=== PATIENT | male | born 1955 | race Caucasian/White ===

== ENCOUNTER 2016-10-14 16:29 | Emergency (ER) | payer OTHER ==
[~2016-10-14] VITALS: Ht 180.3 cm; Wt 83.6 kg
[2016-10-14 16:33] VITALS: TEMP 36.7; Ht 180.3 cm; Wt 83.6 kg
[2016-10-14] MEDS ORDERED: ASPI1CHW12 PO (17:00)
[2016-10-14] MEDS ORDERED: BISA10SU5 RE (17:00)
[2016-10-14] MEDS ORDERED: TACR1CAP PO ×2 (17:00)
[2016-10-14] MEDS ORDERED: ACYC1CAP8 PO (17:00)
[2016-10-14] MEDS ORDERED: MYCO250C26 PO (17:00)
[2016-10-14] MEDS ORDERED: CLC100 PO (17:00)
[2016-10-14] MEDS ORDERED: SULF1TAB92 PO (17:00)
[2016-10-14] MEDS ORDERED: OXYC1TAB3 PO (17:00)
[2016-10-14] MEDS ORDERED: NIFE30TA83 PO (17:00)
[2016-10-14] MEDS ORDERED: ACET-1311 PO (17:00)
[2016-10-14 17:30] LABS: ISTAT CREATININE 1.9 mg/dl (0.6-1.3); ISTAT HEMOGLOBIN 9.5 g/dl (14.0-18.0); ISTAT IONIZED CALCIUM 1.33 mmol/l (1.12-1.32)
[2016-10-14 17:31] LABS: COMPLETE YES; EOS % 2.3 %; HEMATOCRIT 27.7 % (42-52); IG% 0.3 %; LYMPH % 14.1 %; LYMPH ABS # 0.56 K/uL (1.2-3.4); MEAN CELL VOLUME 96.2 fL (80-100); MEAN CORPUSCULAR HEMOGLOBIN 31.9 pg (25-34); MEAN CORPUSCULAR HGB CONC 33.2 g/dl (32-36); MEAN PLATELET VOLUME 9.7 fL (7.4-10.4); MONO % 3.8 %; NEUT % 79.5 %; PLATELET COUNT 204 K/uL (130-400); RED BLOOD COUNT 2.88 M/uL (4.7-6.1); WHITE BLOOD COUNT 3.97 K/uL (4.8-10.8)
[2016-10-14 17:39] LABS: BUN/CREATININE RATIO 14.6 (10-20); CALCIUM 9.3 mg/dl (8.5-10.1); POTASSIUM 4.9 mmol/L (3.5-5.1)
[2016-10-14 18:52] VITALS: BP 158/74; PULSE 86; O2SAT 98
--- NOTE | 2016-10-14 21:21 | EMERGENCY ROOM VISIT NOTE ---
History Report prepared by Katherine: Aliyah Tolentino Under the Supervision of: Dr. Edwardo Silva D.O. First contact with patient: 16:37 Chief Complaint: OTHER COMPLAINT Stated Complaint: HIGH POSTASSIUM History of Present Illness The patient is a 61 year old male who presents to the Emergency Room with complaints of abnormal lab results. His Potassium was found to be high after lab work this morning, and he was told to come to the ED for evaluation. The patient has a history of a kidney transplant performed in August 2016 at [facility] and follows with a Emergency Medicine named Dr. Boothe. He states he had a diagnoses of End Stage Renal Disease from diabetes, which led to needing the transplant. He was on dialysis for 5 years before undergoing the transplant. He reports his Creatinine is normally around 2, but today is was 1.6. He states Dr. Boothe did not tell him an actual number of what his Potassium was, he simply told him it was "high". He denies eating a large amount of Potassium rich foods recently. The patient admits to a history of hypertension, for which he takes daily medication. The patient denies any recent headache, change in vision, fevers, chest pain, shortness of breath, nausea, vomiting, diarrhea, pain with urination , and melena. 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 A total of 10 systems reviewed and were otherwise negative. Past Medical & Surgical Medical Problems: (1) Diabetes (2) End stage renal disease (3) Hypertension Social History Smoking Status: Former Smoker Alcohol Use: occasionally Drug Use: none Marital Status: Housing Status: lives with family Occupation Status: retired Current/Historical Medications Scheduled Acyclovir (Zovirax), 200 MG PO BID Aspirin (Aspirin 81 Low Dose), 81 MG PO QAM Atorvastatin (Lipitor), 40 MG PO QAM Citalopram (Citalopram Hydrobromide), 40 MG PO QAM Clopidogrel (Plavix), 75 MG PO QAM Docusate Sodium (Docusate Sodium), 100 MG PO BID Mycophenolate Mofetil (Cellcept), 1,000 MG PO BID Nifedipine Ext Rel (Procardia Xl Ext Rel), 30 MG PO QAM Tacrolimus (Prograf), 8 MG PO QPM Tacrolimus (Prograf), 9 MG PO QAM Trimethoprim/Sulfamethoxazole (Bactrim 400MG/80MG), 1 TAB PO MWF Scheduled PRN Acetaminophen (Tylenol), 650 MG PO Q6 PRN for Pain Bisacodyl (Bisacodyl), 10 MG RE DAILY PRN for Constipation Oxycodone Ir (Roxicodone Ir), 5-10 MG PO Q4H PRN for Severe Pain Allergies Coded Allergies: Morphine (Unverified Allergy, Unknown, NAUSEA, 10/14/16) Zolpidem (Unverified Allergy, Unknown, UNKNOWN, 10/14/16) Physical Exam Vital Signs Date Time Temp Pulse Resp B/P Pulse Ox O2 Delivery O2 Flow Rate FiO2 10/14/16 18:52 86 20 158/74 98 10/14/16 17:12 84 10/14/16 16:33 36.7 90 18 120/52 100 Room Air Physical Exam GENERAL: Patient is sitting up in bed, alert, well appearing, well nourished, no acute distress, non-toxic EYE EXAM: normal conjunctiva, PERRL and EOM's grossly intact OROPHARYNX: no exudate, no erythema, lips, buccal mucosa, and tongue normal and mucous membranes are moist NECK: supple, no nuchal rigidity, no adenopathy, non-tender LUNGS: Clear to auscultation. Normal chest wall mechanics HEART: no murmurs, S1 normal and S2 normal ABDOMEN: abdomen soft, non-tender, normo-active bowel sounds, no masses, no rebound or guarding. BACK: Back is symmetrical on inspection and there is no deformity, no midline tenderness, no CVA tenderness. SKIN: no rashes and no bruising UPPER EXTREMITIES: upper extremities are grossly normal. RUE with fistula in place. LOWER EXTREMITIES: No pitting edema. NEURO EXAM: Normal sensorium, cranial nerves II-XII grossly intact, normal speech, no gross weakness of arms, no gross weakness of legs. Gross sensation intact. Medical Decision & Procedures Laboratory Results 10/14/16 17:25 Red Blood Count 2.88, Mean Corpuscular Volume 96.2, Mean Corpuscular Hemoglobin 31.9, Mean Corpuscular Hemoglobin Concent 33.2, Mean Platelet Volume 9.7, Neutrophils (%) (Auto) 79.5, Lymphocytes (%) (Auto) 14.1, Monocytes (%) (Auto) 3.8, Eosinophils (%) (Auto) 2.3, Basophils (%) (Auto) 0.0, Neutrophils # (Auto) 3.16, Lymphocytes # (Auto) 0.56, Monocytes # (Auto) 0.15, Eosinophils # (Auto) 0.09, Basophils # (Auto) 0.00 10/14/16 17:13 Test 10/14/16 17:13 10/14/16 17:14 10/14/16 17:25 Est Creatinine Clear Calc Drug Dose 40.8 ml/min Estimated GFR () 40.3 Estimated GFR (Non- 34.7 BUN/Creatinine Ratio 14.6 (10-20) Calcium Level 9.3 mg/dl (8.5-10.1) Bedside Hemoglobin 9.5 g/dl (14.0-18.0) Bedside Hematocrit 28 % (42-52) Bedside Sodium 139 mEq/L (135-144) Bedside Potassium 5.0 mEq/L (3.3-5.0) Bedside Chloride 109 mEq/L (101-112) Bedside Total CO2 20 mEq/l (24-31) Anion Gap 16.0 mmol/L (16-25) Bedside Blood Urea Nitrogen 31 mg/dl (7-18) Bedside Creatinine 1.9 mg/dl (0.6-1.3) Bedside Glucose (other) 212 mg/dl (70-99) Bedside Ionized Calcium (Sandeep) 1.33 mmol/l (1.12-1.32) White Blood Count 3.97 K/uL (4.8-10.8) Red Blood Count 2.88 M/uL (4.7-6.1) Hemoglobin 9.2 g/dL (14.0-18.0) Hematocrit 27.7 % (42-52) Mean Corpuscular Volume 96.2 fL (80-100) Mean Corpuscular Hemoglobin 31.9 pg (25-34) Mean Corpuscular Hemoglobin Concent 33.2 g/dl (32-36) Platelet Count 204 K/uL (130-400) Mean Platelet Volume 9.7 fL (7.4-10.4) Neutrophils (%) (Auto) 79.5 % Lymphocytes (%) (Auto) 14.1 % Monocytes (%) (Auto) 3.8 % Eosinophils (%) (Auto) 2.3 % Basophils (%) (Auto) 0.0 % Neutrophils # (Auto) 3.16 K/uL (1.4-6.5) Lymphocytes # (Auto) 0.56 K/uL (1.2-3.4) Monocytes # (Auto) 0.15 K/uL (0.11-0.59) Eosinophils # (Auto) 0.09 K/uL (0-0.5) Basophils # (Auto) 0.00 K/uL (0-0.2) RDW Standard Deviation 48.7 fL (36.4-46.3) RDW Coefficient of Variation 14.0 % (11.5-14.5) Immature Granulocyte % (Auto) 0.3 % Immature Granulocyte # (Auto) 0.01 K/uL (0.00-0.02) Laboratory results per my review. ECG Indication: other (abnormal lab results) Rate (beats per minute): 85 Rhythm: sinus rhythm Findings: no ectopy, other (normal axis) ED Course ED COURSE: Vital signs were reviewed and showed normal vital signs. The patients medical record was reviewed The above diagnostic studies were performed and reviewed. ED treatments and interventions as stated above. 1642: The patient was evaluated in room B10. A complete history and physical examination was performed. 1805: I reevaluated the patient. He is resting comfortably and doing fine. 1812: I discussed the patient's case with Dr. Gonzalez, [facility] Pan[facility] Transplant Team. He recommends having the patient follow up as an outpatient in the next week. 1845: Upon reevaluation, the patient is feeling well and resting comfortably. I discussed my findings with the patient and he and his understand and agree with the treatment plan. Based on the patients age, coexisting illnesses, exam and lab findings the decision to treat as an outpatient was made. The patient remained stable while under my care. The patient appeared well at the time of discharge. Medical Decision Differential diagnoses includes actually abnormalities. Patient is a 61-year-old male status post renal transplant within the past year taking his immunomodulators who follows with [facility] Dr. Lombardi from nephrology who referred him into be seen for her hyperkalemia. Upon presentation an i-STAT was obtained along with EKG. EKG was unremarkable. Patient has absolutely no complaints. His potassium was 5 on i-STAT and was 4.9. Creatinine was 2 which is along his baseline of 1.8-2. I discussed this with the on-call receiving coordinator from [facility] and he notes that a creatinine of 2 as patient notes is about his baseline. I asked him to obtain and review the labs and why he got sent in but he notes that the patient says it is for his hyperkalemia and is normal that he recently have him follow-up as an outpatient. Discussed and updated the patient at bedside. He was discharged without complaints of follow-up with nephrology on Monday. He had absolutely no abdominal tenderness and consequently I did not draw any abdominal labs. Discussed with Pt concerning signs and symptoms to watch out for. Pt was instructed to follow up with their PCP and discussed with the patient their option to return to the ED at anytime for persistent or worsening symptoms. The appropriate anticipatory guidance and out-patient management, including indications for return to the emergency department, were explained at length to the patient and understood. Consults Time Called: 1809 Consulting Physician: Dr. Gonzalez, [facility] Returned Call: 1811 I discussed the patient's case with Dr. Gonzalez, [facility]. He recommends having the patient follow up as an outpatient in the next week. Impression Primary Impression: Renal transplant recipient Additional Impressions: Electrolyte abnormality Anemia Scribe Attestation The scribe's documentation has been prepared under my direction and personally reviewed by me in its entirety. I confirm that the note above accurately reflects all work, treatment, procedures, and medical decision making performed by me. Departure Information Dispostion Home / Self-Care Referrals Charles Chaudhari M.D. (PCP) Patient Instructions My [facility] Additional Instructions You were sent in for an evaluation of your potassium which per report was elevated. I contacted the director of early childhood education receiving coordinator following obtaining blood work which showed her potassium to be 5.0 and 4.9 on repeat. Creatinine appears to be at baseline 1.8-2. Since her completely a symptomatically and have a normal potassium you're discharged. He should follow up with your receiving coordinator within the week. Please follow up with your primary care doctor with in the next 24 hours. Any worsening of your symptoms, please return to the ED immediately. This includes passing out, chest pain, shortness of breath, diffuse weakness or any other concerning signs or symptoms from your standpoint. Problem Qualifiers Additional Impressions: Anemia Anemia type: unspecified type Qualified Codes: D64.9 - Anemia, unspecified
[2016-11-17] MEDS ORDERED: MAGN400T6 PO (19:55)
[2016-11-17] MEDS ORDERED: FLUD0.1T10 PO (19:55)
[2016-11-17] MEDS ORDERED: CEPH500C PO (21:45)
[2016-11-19] MEDS ORDERED: AZIT500I9 IV (10:53)
[2016-11-19] MEDS ORDERED: CEFE2INJ2 IV (10:53)
[2017-01-23] MEDS ORDERED: MYCO250C26 PO (16:12)
[2017-01-23] MEDS ORDERED: ASPI81TA28 PO (16:12)
[2017-01-23] MEDS ORDERED: SUMA100T16 PO (16:12)
[2017-01-23] MEDS ORDERED: TACR1CAP PO ×2 (16:12)
[2017-01-23] MEDS ORDERED: ACET-1311 PO (16:12)
[2017-01-23] MEDS ORDERED: CARV3.122 PO (16:12)
[2017-01-23] MEDS ORDERED: MAGN400T6 PO (16:12)
[2017-01-23] MEDS ORDERED: SPT/ PO (16:12)
[2017-01-23] MEDS ORDERED: ATOR-24 PO (17:00)
[2017-01-23] MEDS ORDERED: CLX40 PO (17:00)
[2017-01-23] MEDS ORDERED: CLOP1TAB15 PO (17:00)
[2017-01-30] MEDS ORDERED: INSPMPNVLG (09:24)
[2017-01-30] MEDS ORDERED: CRG25 PEG (15:16)
[2017-01-30] MEDS ORDERED: PANT40TA PO (15:45)
[2017-01-30] MEDS ORDERED: AMLO2.5T PO (15:45)
[2017-01-30] MEDS ORDERED: CRG25 PO (17:25)
== END 2016-10-14 18:53 | disposition home or self-care (01) ==
LOC: C.EDB 16:32
DX: E87.5 Hyperkalemia (principal); Z94.0 Kidney transplant status; D64.9 Anemia, unspecified; I12.0 Hypertensive chronic kidney disease with stage 5 chronic kidney disease or end stage renal disease; E11.22 Type 2 diabetes mellitus with diabetic chronic kidney disease; N18.6 End stage renal disease; Z87.891 Personal history of nicotine dependence; Z79.02 Long term (current) use of antithrombotics/antiplatelets; Z79.82 Long term (current) use of aspirin; Z79.899 Other long term (current) drug therapy

== ENCOUNTER 2016-11-17 17:54 | Emergency (ER) | payer OTHER ==
[~2016-11-17] VITALS: Ht 180.3 cm; Wt 76.7 kg
[~2016-11-17 17:54] MED LIST: ACET-1311 PO; ACYC1CAP8 PO; ASPI1CHW12 PO; BISA10SU5 RE; CLC100 PO; MYCO250C26 PO; NIFE30TA83 PO; OXYC1TAB3 PO; SULF1TAB92 PO; TACR1CAP PO
[2016-11-17 18:04] VITALS: Ht 180.3 cm; Wt 76.7 kg
[2016-11-17 18:35] VITALS: O2SAT 97
--- NOTE | 2016-11-17 18:37 | EMERGENCY ROOM VISIT NOTE ---
History Report prepared by Katherine: Any Rodriguez Under the Supervision of: Dr. Kash Mahoney M.D. 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 The patient states that he had a cough due to the congestion over the last few days. He states that he has had some chest pain from the intensity of the cough. 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 The patient states that he contacted his doctor about his symptoms today and they advised him to be evaluated at the ED. The patient states that he has been able to urinate normally since the transplant and denies any recent fevers or chills. The patient states that he is on many medications due to the recent transplant and states that his blood sugar has been fluctuating a lot recently due to his medications. The patient states that he has also had dizziness in the morning that he states has been occurring for quite some time. Source of History: patient Onset: few days KETTLE TENDER Position: chest Timing: other (persistent) Associated Symptoms: + chest pain, No chills, No fevers, No urinary symptoms Note: Associated symptoms: dizziness, fluctuating blood sugar. Review of Systems All systems have been listed, reviewed, and are negative other than those previously mentioned. Please see Additional Medical History Sheet. Past Medical & Surgical Medical Problems: (1) Diabetes (2) End stage renal disease (3) Hypertension Surgical Problems: (1) Kidney transplant recipient Family History Diabetes mellitus Heart disease Hypertension Lung disease Social History Smoking Status: Never Smoker Smokeless Tobacco Use: No Alcohol Use: none Housing Status: lives alone Occupation Status: retired Current/Historical Medications Scheduled Acyclovir (Zovirax), 200 MG PO BID Aspirin (Aspirin 81 Low Dose), 81 MG PO QAM Atorvastatin (Lipitor), 40 MG PO QAM Cephalexin Monohydrate (Keflex), 500 MG PO QID Citalopram (Citalopram Hydrobromide), 40 MG PO QAM Clopidogrel (Plavix), 75 MG PO QAM Docusate Sodium (Docusate Sodium), 100 MG PO BID Fludrocortisone Acetate (Florinef), 0.1 MG PO DAILY Magnesium Oxide (Mag-Ox), 400 MG PO BID Mycophenolate Mofetil (Cellcept), 1,000 MG PO BID Nifedipine Ext Rel (Procardia Xl Ext Rel), 30 MG PO QAM Tacrolimus (Prograf), 8 MG PO QPM Tacrolimus (Prograf), 9 MG PO QAM Trimethoprim/Sulfamethoxazole (Bactrim 400MG/80MG), 1 TAB PO MWF Scheduled PRN Acetaminophen (Tylenol), 650 MG PO Q6 PRN for Pain Bisacodyl (Bisacodyl), 10 MG RE DAILY PRN for Constipation Oxycodone Ir (Roxicodone Ir), 5-10 MG PO Q4H PRN for Severe Pain Allergies Coded Allergies: Morphine (Unverified Allergy, Unknown, NAUSEA, 10/14/16) Zolpidem (Unverified Allergy, Unknown, UNKNOWN, 10/14/16) Physical Exam Vital Signs Date Time Temp Pulse Resp B/P Pulse Ox O2 Delivery O2 Flow Rate FiO2 11/17/16 21:57 36.4 108 18 114/69 98 11/17/16 20:06 95 141/75 100 Room Air 11/17/16 18:50 96 Room Air 11/17/16 18:41 92 11/17/16 18:35 97 Room Air 11/17/16 18:04 37.0 107 20 101/53 100 Room Air Physical Exam GENERAL: Patient awake, alert, oriented x 3. Patient follows commands. Patient does not appear toxic. Patient is adequately hydrated and well- nourished. SKIN: No erythema, pallor, cyanosis or rash HEENT: Normal head, pupils equal, reactive to light and accommodation. Ears normal. Oral cavity and posterior pharynx appear normal. Neck: Without adenopathy, no neck vein distention. LUNGS:An expiratory wheezing in all amos. HEART: Grade 2/6 systolic murmur. No gallops. No rubs ABDOMEN: No masses, no rebound, no hepatomegaly or splenomegaly. Well healed low abdominal scar. EXTREMITIES: No signs of trauma. No pedal or pretibial edema. No calf or thigh tenderness. NEUROLOGIC: Cranial nerves II-XII within normal limits. No gross motor sensory function deficits. Medical Decision & Procedures ER Provider Diagnostic Interpretation: X ray results are stated below per my interpretation and the radiologist's interpretation. CHEST 2 VIEWS ROUTINE CLINICAL HISTORY: CHEST PAIN dyspnea COMPARISON STUDY: No previous studies for comparison. FINDINGS: The bones soft tissues and hemidiaphragms are normal. The cardiomediastinal silhouette is normal. The lungs are clear. The pulmonary vasculature is normal. IMPRESSION: Negative chest. Electronically signed by: Noah Mata M.D. 11/17/2016 7:17 PM Dictated Date/Time: 11/17/2016 7:17 PM Laboratory Results 11/17/16 18:43 Red Blood Count 3.32, Mean Corpuscular Volume 93.1, Mean Corpuscular Hemoglobin 31.6, Mean Corpuscular Hemoglobin Concent 34.0, Mean Platelet Volume 10.4 11/17/16 18:43 Test 11/17/16 18:43 11/17/16 21:13 White Blood Count 0.98 K/uL (4.8-10.8) Red Blood Count 3.32 M/uL (4.7-6.1) Hemoglobin 10.5 g/dL (14.0-18.0) Hematocrit 30.9 % (42-52) Mean Corpuscular Volume 93.1 fL (80-100) Mean Corpuscular Hemoglobin 31.6 pg (25-34) Mean Corpuscular Hemoglobin Concent 34.0 g/dl (32-36) Platelet Count 153 K/uL (130-400) Mean Platelet Volume 10.4 fL (7.4-10.4) RDW Standard Deviation 46.7 fL (36.4-46.3) RDW Coefficient of Variation 13.7 % (11.5-14.5) Neutrophils % (Manual) 74.7 % Lymphocytes % (Manual) 8.3 % Monocytes % (Manual) 12.2 % Eosinophils % (Manual) 0.4 % Metamyelocytes % 3.5 % Myelocytes % 0.9 % Neutrophils # (Manual) 0.73 K/uL (1.4-6.5) Total Absolute Neutrophils 0.73 K/uL (1.4-6.5) Lymphocytes # (Manual) 0.08 K/uL (1.2-3.4) Total Absolute Lymphocytes 0.08 K/uL (1.2-3.4) Monocytes # (Manual) 0.12 K/uL (0.11-0.59) Eosinophils # (Manual) 0.00 K/uL (0-0.5) Metamyelocytes # 0.03 K/uL (0-0) Myelocytes # 0.01 K/uL (0-0) Ovalocytes 1+ Anion Gap 13.0 mmol/L (3-11) Est Creatinine Clear Calc Drug Dose 34.0 ml/min Estimated GFR () 32.3 Estimated GFR (Non- 27.9 BUN/Creatinine Ratio 16.9 (10-20) Calcium Level 9.6 mg/dl (8.5-10.1) Total Bilirubin 0.5 mg/dl (0.2-1) Aspartate Amino Transf (AST/SGOT) 14 U/L (15-37) Alanine Aminotransferase (ALT/SGPT) 18 U/L (12-78) Alkaline Phosphatase 183 U/L (45-117) Troponin I < 0.015 ng/ml (0-0.045) Total Protein 7.0 gm/dl (6.4-8.2) Albumin 3.8 gm/dl (3.4-5.0) Globulin 3.2 gm/dl (2.5-4.0) Albumin/Globulin Ratio 1.2 (0.9-2) Beta-Hydroxybutyric Acid 12.91 mg/dL (0.2-2.81) Bedside Glucose 371 mg/dl (70-99) Laboratory results as stated above per my review. Medications Administered Medications (Trade) Dose Ordered Sig/Jose Route Start Time Stop Time Status Last Admin Dose Admin Albuterol (Ventolin Hfa Inhaler) 2 puffs NOW STAT INH 11/17/16 19:10 11/17/16 19:11 DC 11/17/16 19:56 2 PUFFS Insulin Human Regular (novoLIN-R U-100 PER UNIT) 8 units NOW STAT IV 11/17/16 19:51 11/17/16 19:53 DC 11/17/16 20:01 8 UNITS Cephalexin Monohydrate (Keflex Cap) 500 mg NOW ONCE PO 11/17/16 20:00 11/17/16 20:01 DC 11/17/16 20:04 500 MG ECG Indication: other (chest congestion) Rate (beats per minute): 94 Rhythm: normal sinus Findings: no acute ischemic change, no ectopy ED Course 1817: Past medical records reviewed. The patient was evaluated in room B2. A complete history and physical examination was performed. 1909: Ordered Albuterol 2 puffs INH. 1944: I reevaluated the patient and he was hemodynamically stable. 1950: Ordered Insulin Human Regular 8 units IV. 1999: Ordered Keflex Cap 500 mg PO. 2000: I updated the patient on his test results. 2149: Upon reevaluation, the patient appeared to have improvement of his symptoms. I discussed today's findings with him. He verbalized agreement of the treatment plan. The patient was discharged home. Medical Decision Nurses notes reviewed. Medical history sheet reviewed. Differential diagnosis includes but is not limited to: pneumonia, bronchitis, upper respiratory infection, and immunosuppression. The patient is here with congestion and cough. The patient is on immunosuppressants for his kidney transplant. Multiple labs, EKG and imaging were obtained. Please see above. The patient has no infiltrate on his chest x- ray. His white count is very low. He has no shift. He has no fever has no other signs of infection. The patient was him. We started on Keflex. His blood sugar was elevated and was treated with IV insulin. Blood sugar was rechecked and it did come down. He has a pump and he will regulate his blood sugar at home. The patient was also started on Ventolin inhaler. He is to follow-up this family physician within the next 5 days. Impression Primary Impression: Acute bronchitis Additional Impressions: Leukopenia Immunosuppression Diabetes mellitus out of control Scribe Attestation The scribe's documentation has been prepared under my direction and personally reviewed by me in its entirety. I confirm that the note above accurately reflects all work, treatment, procedures, and medical decision making performed by me. Departure Information Dispostion Home / Self-Care Prescriptions Cephalexin Monohydrate (Keflex) 500 Mg Cap 500 MG PO QID, #40 CAP Prov: Kash Mahoney M.D. 11/17/16 Referrals Charles Chaudhari M.D. (PCP) Forms HOME CARE DOCUMENTATION FORM, IMPORTANT VISIT INFORMATION Patient Instructions My [facility] Additional Instructions 1 Keflex 4 times a day for 10 days. 2 puffs of your inhaler every 4 hours as needed for cough or wheezing. Follow-up with your family physician within the next 5 days. Return here sooner if he develop more shortness of breath or any fever. Recheck your blood sugar frequently. Problem Qualifiers
[2016-11-17] MEDS ORDERED: ALBUTEROL HFA 8 GM INHALER INH STA (19:10)
--- NOTE | 2016-11-17 19:18 | DIAGNOSTIC IMAGING REPORT ---
CHEST 2 VIEWS ROUTINE CLINICAL HISTORY: CHEST PAIN dyspnea COMPARISON STUDY: No previous studies for comparison. FINDINGS: The bones soft tissues and hemidiaphragms are normal. The cardiomediastinal silhouette is normal. The lungs are clear. The pulmonary vasculature is normal. IMPRESSION: Negative chest. Electronically signed by: Noah Mata M.D. 11/17/2016 7:17 PM Dictated Date/Time: 11/17/2016 7:17 PM
[2016-11-17 19:25] LABS: ALB/GLOB RATIO 1.2 (0.9-2); ALKALINE PHOSPHATASE 183 U/L (45-117); ALT/SGPT 18 U/L (12-78); AST/SGOT 14 U/L (15-37); BLOOD UREA NITROGEN 41 mg/dl (7-18); BUN/CREATININE RATIO 16.9 (10-20); CALCIUM 9.6 mg/dl (8.5-10.1); CARBON DIOXIDE 19 mmol/L (21-32); CHLORIDE 102 mmol/L (98-107); GLUCOSE 523 mg/dl (70-99); POTASSIUM 5.1 mmol/L (3.5-5.1); SODIUM 134 mmol/L (136-145)
[2016-11-17 19:39] LABS: BETA-HYDROXYBUTYRATE 12.91 mg/dL (0.2-2.81)
[2016-11-17 19:45] LABS: HEMATOCRIT 30.9 % (42-52); MEAN CELL VOLUME 93.1 fL (80-100); MEAN CORPUSCULAR HEMOGLOBIN 31.6 pg (25-34); MEAN PLATELET VOLUME 10.4 fL (7.4-10.4); PLATELET COUNT 153 K/uL (130-400); RED BLOOD COUNT 3.32 M/uL (4.7-6.1); WHITE BLOOD COUNT 0.98 K/uL (4.8-10.8)
[2016-11-17 19:46] LABS: COMPLETE YES; EOSINOPHIL % 0.4 %; LYMPH ABS # 0.08 K/uL (1.2-3.4); LYMPHOCYTE % 8.3 %; META ABS # 0.03 K/uL (0-0); METAMYELOCYTE % 3.5 %; MYELOCYTE % 0.9 %; NEUTROPHILS % 74.7 %; OVALOCYTES 1+
[2016-11-17] MEDS ORDERED: NovoLIN-R INSULIN PER UNIT CHARGE IV STA (19:51)
[2016-11-17] MEDS ORDERED: FLUD0.1T10 PO ×2 (19:55)
[2016-11-17] MEDS ORDERED: MAGN400T6 PO ×2 (19:55)
[2016-11-17] MEDS ORDERED: CEPHALEXIN MONOHYDRATE 250 MG CAP PO ONE (20:00)
[2016-11-17] MEDS ORDERED: CEPH500C PO ×2 (21:45)
[2016-11-17 21:57] VITALS: BP 114/69; PULSE 108; TEMP 36.4; O2SAT 98
[2016-11-19] MEDS ORDERED: AZIT500I9 IV ×2 (10:53)
[2016-11-19] MEDS ORDERED: CEFE2INJ2 IV ×2 (10:53)
[2017-01-23] MEDS ORDERED: CARV3.122 PO (16:12)
[2017-01-23] MEDS ORDERED: MAGN400T6 PO (16:12)
[2017-01-23] MEDS ORDERED: SPT/ PO (16:12)
[2017-01-23] MEDS ORDERED: ASPI81TA28 PO (16:12)
[2017-01-23] MEDS ORDERED: SUMA100T16 PO (16:12)
[2017-01-23] MEDS ORDERED: TACR1CAP PO ×2 (16:12)
[2017-01-23] MEDS ORDERED: MYCO250C26 PO (16:12)
[2017-01-23] MEDS ORDERED: ACET-1311 PO (16:12)
[2017-01-23] MEDS ORDERED: CLOP1TAB15 PO ×2 (17:00)
[2017-01-23] MEDS ORDERED: ATOR-24 PO ×2 (17:00)
[2017-01-23] MEDS ORDERED: CLX40 PO ×2 (17:00)
[2017-01-30] MEDS ORDERED: INSPMPNVLG (09:24)
[2017-01-30] MEDS ORDERED: CRG25 PEG (15:16)
[2017-01-30] MEDS ORDERED: AMLO2.5T PO (15:45)
[2017-01-30] MEDS ORDERED: PANT40TA PO (15:45)
[2017-01-30] MEDS ORDERED: CRG25 PO (17:25)
== END 2016-11-17 22:00 | disposition home or self-care (01) ==
LOC: C.EDB 17:55
DX: J20.9 Acute bronchitis, unspecified (principal); D72.819 Decreased white blood cell count, unspecified; D89.9 Disorder involving the immune mechanism, unspecified; E11.9 Type 2 diabetes mellitus without complications; I12.0 Hypertensive chronic kidney disease with stage 5 chronic kidney disease or end stage renal disease; N18.6 End stage renal disease; Z94.0 Kidney transplant status

== ENCOUNTER 2016-11-18 20:38 | Inpatient (IN) | payer OTHER ==
[~2016-11-18] VITALS: Ht 180.3 cm; Wt 74.7 kg
[~2016-11-18 20:38] MED LIST changes: +CEPH500C PO; +FLUD0.1T10 PO; +MAGN400T6 PO
[2016-11-18] MEDS ORDERED: SODIUM CHLORIDE 0.9% 1000ML 1,000 ML IV STA (21:18)
[2016-11-18] MEDS ORDERED: ONDANSETRON INJ 2 MG/ML 2 ML VIAL IV STA (21:18)
--- NOTE | 2016-11-18 21:45 | DIAGNOSTIC IMAGING REPORT ---
CHEST ONE VIEW PORTABLE CLINICAL HISTORY: Sepsis dyspnea COMPARISON STUDY: 11/17/2016 FINDINGS: Developing infiltrative process medial left lung base. Lungs otherwise appear clear. Diaphragms are smooth. IMPRESSION: Minimal developing parenchymal infiltrate medial left base Electronically signed by: Noah Mata M.D. 11/18/2016 9:44 PM Dictated Date/Time: 11/18/2016 9:43 PM
[2016-11-18 21:47] LABS: INR 1.1 (0.9-1.1); PROTHROMBIN TIME (PATIENT) 11.8 SECONDS (9.0-12.0)
[2016-11-18 21:56] LABS: ALB/GLOB RATIO 1.2 (0.9-2); BUN/CREATININE RATIO 15.9 (10-20); CREATININE 2.6 mg/dl (0.60-1.40); POTASSIUM 4.3 mmol/L (3.5-5.1)
[2016-11-18 22:10] LABS: BETA-HYDROXYBUTYRATE 8.65 mg/dL (0.2-2.81)
[2016-11-18] MEDS ORDERED: CEFEPIME IV 2,000 MG in DEXTROSE 5% 100ML 100 ML IV STA (22:42)
[2016-11-18] MEDS ORDERED: NovoLIN-R INSULIN PER UNIT CHARGE IV STA (23:12)
[2016-11-18 23:24] LABS: LARGE PLATELETS 1+
[2016-11-18 23:25] LABS: LYMPH ABS # 0.15 K/uL (1.2-3.4); LYMPHOCYTE % 12.6 %; META ABS # 0.01 K/uL (0-0); NEUTROPHILS % 71.8 %
[2016-11-18 23:26] LABS: HEMATOCRIT 31.7 % (42-52); MEAN CELL VOLUME 93.5 fL (80-100); MEAN CORPUSCULAR HEMOGLOBIN 31.6 pg (25-34); MEAN CORPUSCULAR HGB CONC 33.8 g/dl (32-36); MEAN PLATELET VOLUME 11.3 fL (7.4-10.4); PLATELET COUNT 177 K/uL (130-400); RED BLOOD COUNT 3.39 M/uL (4.7-6.1); WHITE BLOOD COUNT 1.23 K/uL (4.8-10.8)
[2016-11-18 23:28] LABS: DOHLE BODIES 1+
[2016-11-18 23:29] LABS: COMPLETE YES
[2016-11-19 00:02] LABS: URINE APPEARANCE CLEAR (CLEAR); URINE BILIRUBIN NEG (NEG); URINE COLOR YELLOW; URINE NITRITE NEG (NEG); URINE PH 5.5 (4.5-7.5); URINE SPECIFIC GRAVITY 1.019 (1.000-1.030); UROBILINOGEN NEG (NEG); ZZUR CULT IF INDIC CLEAN CATCH NO
[2016-11-19 00:04] LABS: MANUAL MICROSCOPIC REQUIRED? NO; REVIEW REQ? NO
[2016-11-19] MEDS ORDERED: INSULIN IV INFUSION PROTOCOL STA (00:56)
[2016-11-19] MEDS ORDERED: SEVERE STRESS LEVEL ONE (01:00)
[2016-11-19] MEDS ORDERED: INSULIN PROTOCOL GOAL RANGE ONE (01:00)
[2016-11-19] MEDS ORDERED: SODIUM CHLORIDE 0.9% 1000ML 1,000 ML IV STA (01:09)
[2016-11-19] MEDS ORDERED: AZITHROMYCIN IV 500 MG in DEXTROSE 5% 250ML 250 ML IV STA (01:25)
[2016-11-19] MEDS ORDERED: PROMETHAZINE HCL INJ 12.5 MG in SODIUM CHLORIDE 0.9% 50ML 50 ML IV STA (01:31)
--- NOTE | 2016-11-19 02:30 | EMERGENCY ROOM VISIT NOTE ---
History Report prepared by Katherine: Ermelinda Delgado Under the Supervision of: Dr. Moiz Lei M.D. First contact with patient: 21:10 Chief Complaint: VOMITING Stated Complaint: POSSIBLE DEHYDRATION, VOMITING; REVIST FROM 11/17 Nursing Triage Summary: pt reports pt seen here last night for vomitting , this cont. also with diarrhea today History of Present Illness The patient is a 61 year old male who presents to the Emergency Room with complaints of a constant illness beginning this week. The patient reports that he has been sick for a couple of weeks but it has significantly worsened over the last week. He states that he was seen here last night for vomiting and today his symptoms are worse. He complains of an "extreme" non-productive cough , vomiting for 2 days, shortness of breath that is worsened with walking, chest soreness from coughing, weakness, dizziness, and diarrhea. He notes that he has not been able to hold down food or liquid in the last 2 days. The patient denies any urinary symptoms and fever. Source of History: patient Onset: 1 week ago Position: other (global) Timing: constant Modifying Factors (Worsening): other (walking worsens SOB) Associated Symptoms: + SOB, + cough, + diarrhea, + vomiting, + weakness, No fevers, No urinary symptoms Note: He complains of an chest soreness from coughing, dizziness. He notes that he has not been able to hold down food or liquid in the last 2 days. Review of Systems See HPI for pertinent positives & negatives. A total of 10 systems reviewed and were otherwise negative. Past Medical & Surgical Medical Problems: (1) Diabetes (2) DKA (diabetic ketoacidoses) (3) End stage renal disease (4) Hypertension Surgical Problems: (1) Kidney transplant recipient Family History Diabetes mellitus Heart disease Hypertension Lung disease Social History Smoking Status: Former Smoker Alcohol Use: none Housing Status: lives alone Occupation Status: retired Current/Historical Medications Scheduled Acyclovir (Zovirax), 200 MG PO BID Aspirin (Aspirin 81 Low Dose), 81 MG PO QAM Atorvastatin (Lipitor), 40 MG PO QAM Cephalexin Monohydrate (Keflex), 500 MG PO QID Citalopram (Citalopram Hydrobromide), 40 MG PO QAM Clopidogrel (Plavix), 75 MG PO QAM Docusate Sodium (Docusate Sodium), 100 MG PO BID Fludrocortisone Acetate (Florinef), 0.1 MG PO DAILY Magnesium Oxide (Mag-Ox), 400 MG PO BID Mycophenolate Mofetil (Cellcept), 1,000 MG PO BID Nifedipine Ext Rel (Procardia Xl Ext Rel), 30 MG PO QAM Tacrolimus (Prograf), 8 MG PO QPM Tacrolimus (Prograf), 9 MG PO QAM Scheduled PRN Acetaminophen (Tylenol), 650 MG PO Q6 PRN for Pain Bisacodyl (Bisacodyl), 10 MG RE DAILY PRN for Constipation Oxycodone Ir (Roxicodone Ir), 5-10 MG PO Q4H PRN for Severe Pain Allergies Coded Allergies: Morphine (Unverified Allergy, Unknown, NAUSEA, 11/18/16) Zolpidem (Unverified Allergy, Unknown, UNKNOWN, 11/18/16) Physical Exam Vital Signs Date Time Temp Pulse Resp B/P Pulse Ox O2 Delivery O2 Flow Rate FiO2 11/19/16 01:23 120 20 136/77 99 Room Air 11/19/16 00:51 121 11/18/16 23:41 117 18 169/93 99 Room Air 11/18/16 22:12 106 18 158/113 100 Room Air 11/18/16 21:11 102 11/18/16 20:43 36.7 110 20 110/68 100 Room Air Physical Exam Constitutional: Vital signs reviewed. Eyes: Pupils are equal round reactive to light. Conjunctiva are noninjected. ENT: Pharynx is clear without erythema or exudate. Mucous membranes are dry. Neck supple without meningeal signs. Respiratory: Clear to auscultation bilaterally. Breath sounds are equal bilaterally. Cardiovascular: Tachycardic rate of 103 and rhythm. No rubs or gallops. GI: Soft, nondistended and nontender. Bowel sounds are present. No tenderness over his graft. Musculoskeletal: No peripheral edema. No lower extremity tenderness. Integumentary: No cyanosis. Neurological: The patient is awake and alert. No focal deficits. Psychiatric: Normal affect. Medical Decision & Procedures ER Provider Diagnostic Interpretation: X-ray results as stated below per interpretation by me and the radiologist. Other radiology results as stated below per my review and the radiologist's interpretation: CHEST ONE VIEW PORTABLE FINDINGS: Developing infiltrative process medial left lung base. Lungs otherwise appear clear. Diaphragms are smooth. IMPRESSION: Minimal developing parenchymal infiltrate medial left base Electronically signed by: Noah Mata M.D. 11/18/2016 9:44 PM Dictated Date/Time: 11/18/2016 9:43 PM US OTHER - Renal Transplant: Mild hydronephrosis. Resistive indices are within normal limits measuring 0.65-0.8. Tiny 4mm lower pole cyst. Iliac artery velocity 231cm/s. Main renal artery anastomosis velocity 514cm/s ( decreased). No priors available to establish trend. Suggest followup to exclude stenosis. Main renal vein and iliac vein appear patent. Bladder debris. Bladder volume pre-void 438mL, postvoid 301mL. Radiologist: Hair Balderrama M.D. Laboratory Results 11/18/16 21:00 Red Blood Count 3.39, Mean Corpuscular Volume 93.5, Mean Corpuscular Hemoglobin 31.6, Mean Corpuscular Hemoglobin Concent 33.8, Mean Platelet Volume 11.3 Test 11/18/16 21:00 11/18/16 21:10 11/18/16 21:29 11/18/16 21:39 White Blood Count 1.23 K/uL (4.8-10.8) Red Blood Count 3.39 M/uL (4.7-6.1) Hemoglobin 10.7 g/dL (14.0-18.0) Hematocrit 31.7 % (42-52) Mean Corpuscular Volume 93.5 fL (80-100) Mean Corpuscular Hemoglobin 31.6 pg (25-34) Mean Corpuscular Hemoglobin Concent 33.8 g/dl (32-36) Platelet Count 177 K/uL (130-400) Mean Platelet Volume 11.3 fL (7.4-10.4) RDW Standard Deviation 46.9 fL (36.4-46.3) RDW Coefficient of Variation 13.7 % (11.5-14.5) Neutrophils % (Manual) 71.8 % Band Neutrophils % (Manual) 0.0 % Lymphocytes % (Manual) 12.6 % Variant Lymphocytes % (manual) 0.0 % Monocytes % (Manual) 13.6 % Metamyelocytes % 1.0 % Myelocytes % 1.0 % Neutrophils # (Manual) 0.85 K/uL (1.4-6.5) Total Absolute Neutrophils 0.85 K/uL (1.4-6.5) Lymphocytes # (Manual) 0.15 K/uL (1.2-3.4) Total Absolute Lymphocytes 0.15 K/uL (1.2-3.4) Monocytes # (Manual) 0.16 K/uL (0.11-0.59) Metamyelocytes # 0.01 K/uL (0-0) Myelocytes # 0.01 K/uL (0-0) Percent Large Granular Lymphocytes 0.0 % Dohle Bodies 1+ Large Platelets 1+ Prothrombin Time 11.8 SECONDS (9.0-12.0) Prothromb Time International Ratio 1.1 (0.9-1.1) Activated Partial Thromboplast Time 24.9 SECONDS (21.0-31.0) Partial Thromboplastin Ratio 1.0 Est Creatinine Clear Calc Drug Dose 31.1 ml/min Total Bilirubin 0.6 mg/dl (0.2-1) Aspartate Amino Transf (AST/SGOT) 12 U/L (15-37) Alanine Aminotransferase (ALT/SGPT) 16 U/L (12-78) Alkaline Phosphatase 175 U/L (45-117) Total Protein 7.2 gm/dl (6.4-8.2) Albumin 3.9 gm/dl (3.4-5.0) Globulin 3.3 gm/dl (2.5-4.0) Albumin/Globulin Ratio 1.2 (0.9-2) Beta-Hydroxybutyric Acid 8.65 mg/dL (0.2-2.81) Influenza Type A Antigen Neg for Influ A (NEG) Influenza Type B Antigen Neg for Influ B (NEG) Bedside Troponin I 0.010 ng/ml (0-0.045) Test 11/18/16 21:58 11/18/16 23:45 11/19/16 00:54 11/19/16 01:13 Bedside Lactic Acid Venous 2.60 mmol/L (0.90-1.70) Urine Color YELLOW Urine Appearance CLEAR (CLEAR) Urine pH 5.5 (4.5-7.5) Urine Specific [place] 1.019 (1.000-1.030) Urine Protein NEG (NEG) Urine Glucose (UA) 3+ (NEG) Urine Ketones NEG (NEG) Urine Occult Blood NEG (NEG) Urine Nitrite NEG (NEG) Urine Bilirubin NEG (NEG) Urine Urobilinogen NEG (NEG) Urine Leukocyte Esterase NEG (NEG) Urine WBC (Auto) 0 /hpf (0-5) Urine RBC (Auto) 0-4 /hpf (0-4) Urine Hyaline Casts (Auto) 1-5 /lpf (0-5) Urine Epithelial Cells (Auto) 5-10 /lpf (0-5) Urine Bacteria (Auto) NEG (NEG) Bedside Glucose 217 mg/dl (70-99) Laboratory results as reviewed by me. Medications Administered Medications (Trade) Dose Ordered Sig/Jose Route Start Time Stop Time Status Last Admin Dose Admin Sodium Chloride (Nss 1000ml) 1,000 ml @ 999 mls/hr Q1H1M STAT IV 11/18/16 21:18 11/18/16 22:18 DC 11/18/16 21:18 999 MLS/HR Ondansetron HCl 4 mg 4 mg NOW STAT IV 11/18/16 21:18 11/18/16 21:21 DC 11/18/16 21:34 4 MG Cefepime HCl/ Dextrose (Maxipime IV/D5 100ml) 112.5 ml @ 200 mls/hr NOW STAT IV 11/18/16 22:42 11/18/16 23:15 DC 11/18/16 23:59 200 MLS/HR Insulin Human Regular 5 units 5 units NOW STAT IV 11/18/16 23:12 11/18/16 23:13 DC 11/19/16 00:11 5 UNITS Promethazine HCl 12.5 mg/Sodium Chloride 50.5 ml @ 204 mls/hr ONE STAT IV 11/19/16 01:31 11/19/16 01:45 DC 11/19/16 01:46 204 MLS/HR Azithromycin/ Dextrose (Zithromax IV/D5 250ml) 255 ml @ 125 mls/hr ONE STAT IV 11/19/16 01:25 11/19/16 03:27 11/19/16 01:46 125 MLS/HR ECG Indication: vomiting Rate (beats per minute): 104 Rhythm: sinus tachycardia Findings: no acute ischemic change, no ectopy ED Course 2109: The patient was evaluated in room B5. A complete history and physical exam was performed. 2117: Zofran Inj 4mg IV, Sodium Chloride 1000 ml @ 999 mls/hr IV. 2242: Cefepime HCl 2000mg/Dextrose 112.5ml @ 200mls/hr IV. 2312: Insulin Human Regular 5 units IV. 2339: I reevaluated the patient and discussed his test results. 0045: I spoke to Rebekah Petty from the [facility] transplant team. She suggested hydration, give antibiotics, and stop the asdpfoiu. 0108: Dr. Ramos notes that the patient is from [facility]. 0124: I spoke with Dr. Cornejo of [facility]. We discussed the patient and his results. The patient will be further evaluated by him. Dr. Cornejo suggested that we give Zithromax to cover atypical pathogens. Medical Decision This is a 61-year-old male presents with vomiting and cough. Differential diagnosis includes pneumonia, neutropenia, influenza, dehydration, rejection, sepsis. I did perform a limited focused review of portions of the patient's old chart on the electronic medical record. The patient was seen here yesterday for dizziness, vomiting, and chest congestion. He has a history of kidney transplant 3 months ago. He had a white count of .98, his creatinine was 2.8, and his blood sugar was 371. I did evaluate the patient as noted above. IV access was established. The patient was placed on a continuous cardiac specialist. I did treat patient with normal saline IV. He was also given Zofran IV. I did order and personally review the patient's 12-lead EKG and chest x-ray as described above. He does have a left lower lobe infiltrate. Blood cultures were ordered. I did treat the patient with cefepime IV. I did order and review the patient's blood work as noted in the electronic medical record. He is neutropenic. He is also hyperglycemic. He was given insulin IV. He has a mild anion gap. I did order an ultrasound of his renal transplant. I did review the images myself as well as the radiology report as described above. I did reassess the patient. I did discuss the test results with him. I did recommend hospitalization for IV antibiotics and further treatment. I did discuss the case with the transplant physician director money who recommended that we stop the CellCept until his white blood cell count improves. I did discuss the case with the hospitalist who requested I also gave the patient Zithromax IV. The patient was given Zithromax IV. He was admitted to the hospital. Consults Time Called: 004 Consulting Physician: Rebekah Petty Returned Call: 0045 I spoke to Rebekah Petty from the [facility] transplant team. She suggested hydration, give antibiotics, and stop the asdpfoiu. Additional Consults: Time Called: 010 Consulted Physician: Dr. Ramos Returned Call: 0108 Additional Comments: Dr. Ramos notes that the patient is from [facility]. Time Called: 0120 Consulted Physician: Dr. Cornejo - [facility] Returned Call: 0124 Additional Comments: I spoke with Dr. Cornejo of [facility]. We discussed the patient and his results. The patient will be further evaluated by him. Dr. Cornejo suggested that we give Zithromax to cover atypical pathogens. Impression Primary Impression: Left lower lobe pneumonia Additional Impressions: Neutropenic fever Hyperglycemia Dehydration Critical Care I have personally spent more than 30 minutes of critical care time in the direct management of this patient. This includes bedside care, interpretation of diagnostic studies and testing, discussion with consultants and patient, and other required patient management activities. This time is in excess of all separately billable procedures. Scribe Attestation The scribe's documentation has been prepared under my direct and personally reviewed by me in its entirety. I confirm that the note above accurately reflects all work, treatment, procedures, and medical decision making performed by me. Departure Information Dispostion Being Evaluated By Hospitalist Referrals Charles Chaudhari M.D. (PCP) Patient Instructions My [facility] Problem Qualifiers
--- NOTE | 2016-11-19 02:32 | Progress Note ---
Internal Med Progress Note Date of Service: Nov 19, 2016. Provider Documentation: I was requested by ER MD, Dr. Lei to admit px. Px and sister informed me that px intends to follow up as a new px of Dr. Waite ([facility]) upon discharge from the hospital. I relayed this to Dr. Lei. He will contact [facility] hospitalist distribution center assistant. Vital Signs: Date Time Temp Pulse Resp B/P Pulse Ox O2 Delivery O2 Flow Rate FiO2 11/19/16 04:45 37.2 60 18 98/52 97 Room Air 11/19/16 04:38 Room Air 11/19/16 03:56 105 18 118/69 96 Room Air 11/19/16 02:43 118 18 123/70 91 Room Air 11/19/16 01:23 120 20 136/77 99 Room Air 11/19/16 00:51 121 11/18/16 23:41 117 18 169/93 99 Room Air 11/18/16 22:12 106 18 158/113 100 Room Air 11/18/16 21:11 102 11/18/16 20:43 36.7 110 20 110/68 100 Room Air Lab Results: Results Past 24 Hours Test 11/18/16 21:00 11/18/16 21:10 11/18/16 21:29 11/18/16 21:39 Range/Units White Blood Count 1.23 4.8-10.8 K/uL Red Blood Count 3.39 4.7-6.1 M/uL Hemoglobin 10.7 14.0-18.0 g/dL Hematocrit 31.7 42-52 % Mean Corpuscular Volume 93.5 80-100 fL Mean Corpuscular Hemoglobin 31.6 25-34 pg Mean Corpuscular Hemoglobin Concent 33.8 32-36 g/dl Platelet Count 177 130-400 K/uL Mean Platelet Volume 11.3 7.4-10.4 fL RDW Standard Deviation 46.9 36.4-46.3 fL RDW Coefficient of Variation 13.7 11.5-14.5 % Neutrophils % (Manual) 71.8 % Band Neutrophils % (Manual) 0.0 % Lymphocytes % (Manual) 12.6 % Variant Lymphocytes % (manual) 0.0 % Monocytes % (Manual) 13.6 % Metamyelocytes % 1.0 % Myelocytes % 1.0 % Neutrophils # (Manual) 0.85 1.4-6.5 K/uL Total Absolute Neutrophils 0.85 1.4-6.5 K/uL Lymphocytes # (Manual) 0.15 1.2-3.4 K/uL Total Absolute Lymphocytes 0.15 1.2-3.4 K/uL Monocytes # (Manual) 0.16 0.11-0.59 K/uL Metamyelocytes # 0.01 0-0 K/uL Myelocytes # 0.01 0-0 K/uL Percent Large Granular Lymphocytes 0.0 % Dohle Bodies 1+ Large Platelets 1+ Prothrombin Time 11.8 9.0-12.0 SECONDS Prothromb Time International Ratio 1.1 0.9-1.1 Activated Partial Thromboplast Time 24.9 21.0-31.0 SECONDS Partial Thromboplastin Ratio 1.0 Sodium Level 137 136-145 mmol/L Potassium Level 4.3 3.5-5.1 mmol/L Chloride Level 102 98-107 mmol/L Carbon Dioxide Level 19 21-32 mmol/L Anion Gap 16.0 3-11 mmol/L Blood Urea Nitrogen 41 7-18 mg/dl Creatinine 2.60 0.60-1.40 mg/dl Est Creatinine Clear Calc Drug Dose 31.1 ml/min Estimated GFR () 29.3 Estimated GFR (Non- 25.3 BUN/Creatinine Ratio 15.9 10-20 Random Glucose 418 70-99 mg/dl Calcium Level 10.0 8.5-10.1 mg/dl Total Bilirubin 0.6 0.2-1 mg/dl Aspartate Amino Transf (AST/SGOT) 12 15-37 U/L Alanine Aminotransferase (ALT/SGPT) 16 12-78 U/L Alkaline Phosphatase 175 45-117 U/L Total Protein 7.2 6.4-8.2 gm/dl Albumin 3.9 3.4-5.0 gm/dl Globulin 3.3 2.5-4.0 gm/dl Albumin/Globulin Ratio 1.2 0.9-2 Beta-Hydroxybutyric Acid 8.65 0.2-2.81 mg/dL Influenza Type A Antigen Neg for Influ A NEG Influenza Type B Antigen Neg for Influ B NEG Estimated Average Glucose 203 mg/dl Hemoglobin A1c 8.7 4.5-5.6 % Bedside Troponin I 0.010 0-0.045 ng/ml Test 11/18/16 21:58 11/18/16 23:45 11/19/16 01:13 11/19/16 05:06 Range/Units Bedside Lactic Acid Venous 2.60 0.90-1.70 mmol/L Urine Color YELLOW Urine Appearance CLEAR CLEAR Urine pH 5.5 4.5-7.5 Urine Specific [place] 1.019 1.000-1.030 Urine Protein NEG NEG Urine Glucose (UA) 3+ NEG Urine Ketones NEG NEG Urine Occult Blood NEG NEG Urine Nitrite NEG NEG Urine Bilirubin NEG NEG Urine Urobilinogen NEG NEG Urine Leukocyte Esterase NEG NEG Urine WBC (Auto) 0 0-5 /hpf Urine RBC (Auto) 0-4 0-4 /hpf Urine Hyaline Casts (Auto) 1-5 0-5 /lpf Urine Epithelial Cells (Auto) 5-10 0-5 /lpf Urine Bacteria (Auto) NEG NEG Bedside Glucose 217 70-99 mg/dl Test 11/19/16 05:52 Range/Units Bedside Glucose 163 70-99 mg/dl Microbiology Results 11/18/16 Blood Culture, Received Pending 11/18/16 Blood Culture, Received Pending
[2016-11-19] MEDS ORDERED: OXYCODONE HCL IR 5 MG TAB (IMMEDIATE RELEASE) PO PRN (03:15)
[2016-11-19] MEDS ORDERED: MAGNESIUM HYDROXIDE SUSP 30 ML UDC PO PRN (03:15)
[2016-11-19] MEDS ORDERED: ALBUT/IPRATROP 3MG/0.5MG NEB 3 ML VIAL INH PRN (03:15)
[2016-11-19] MEDS ORDERED: ONDANSETRON INJ 2 MG/ML 2 ML VIAL IV PRN (03:15)
[2016-11-19] MEDS ORDERED: ACETAMINOPHEN 325 MG TAB PO PRN (03:15)
[2016-11-19] MEDS ORDERED: ALUMINUM/MAGNESIUM/SIMETH (MAALOX MAX) 30 ML UDC PO PRN (03:15)
[2016-11-19 03:56] VITALS: O2SAT 96
[2016-11-19] MEDS ORDERED: POLYETHYLENE (MIRALAX) 17 GM PACK PO PRN (04:15)
--- NOTE | 2016-11-19 04:18 | History and Physical ---
History & Physical Date & Time of Service: Nov 19, 2016 at 03:54 Chief Complaint: Possible Dehydration, Vomiting; Revist From 11/17 Primary Care Physician: Charles Chaudhari M.D. History of Present Illness Source: patient 61 y/o M w/Hx HTN, DM, ESRD - received a renal transplant 12/15. Pt presents with c/o productive cough, mild SOB and fever over past 2 days. He denies CP, N /V, back pain or dysuria. Initial w/u in ER suggests development of a LLL PNM. Labs reveal neutropenia, hyperglycemia and a rising creatinine. Past Medical/Surgical History (1) Kidney transplant recipient Status: Resolved 2) IDDM 3) HTN 4) Immunocompromised due to use of Cellcept and Tacrolimus 5) Hyperlipidemia 6) ESRD - received a renal transplant at [facility] 12/15 - had been on dialysis for 5 years prior - graft in R arm 7) Mineralocorticoid deficiency 8) Heart murmur - pt is aware of murmur and states that he does not have significant valvular disease 9) CAD - cath and 2 stents 2005 Family History Diabetes mellitus Heart disease Hypertension Lung disease Social History Smoking Status: Former Smoker Alcohol Use: none Occupational Status: retired Allergies Coded Allergies: Morphine (Unverified Allergy, Unknown, NAUSEA, 11/18/16) Zolpidem (Unverified Allergy, Unknown, UNKNOWN, 11/18/16) Home Medications Scheduled Acyclovir (Zovirax), 200 MG PO BID Aspirin (Aspirin 81 Low Dose), 81 MG PO QAM Atorvastatin (Lipitor), 40 MG PO QAM Cephalexin Monohydrate (Keflex), 500 MG PO QID Citalopram (Citalopram Hydrobromide), 40 MG PO QAM Clopidogrel (Plavix), 75 MG PO QAM Docusate Sodium (Docusate Sodium), 100 MG PO BID Fludrocortisone Acetate (Florinef), 0.1 MG PO DAILY Magnesium Oxide (Mag-Ox), 400 MG PO BID Mycophenolate Mofetil (Cellcept), 1,000 MG PO BID Nifedipine Ext Rel (Procardia Xl Ext Rel), 30 MG PO QAM Tacrolimus (Prograf), 8 MG PO QPM Tacrolimus (Prograf), 9 MG PO QAM Scheduled PRN Acetaminophen (Tylenol), 650 MG PO Q6 PRN for Pain Bisacodyl (Bisacodyl), 10 MG RE DAILY PRN for Constipation Oxycodone Ir (Roxicodone Ir), 5-10 MG PO Q4H PRN for Severe Pain Review of Systems Constitutional: + chills, + fever, + sweats Eyes: No eye pain, No worsening of vision ENT: No hearing loss, No nasal symptoms, No unusual epistaxis Respiratory: + cough, + dyspnea at rest, + dyspnea on exertion, + shortness of breath, + sputum, No wheezing Cardiovascular: No PND, No chest pain, No orthopnea Abdomen: No nausea, No pain, No vomiting Musculoskeletal: No joint pain, No muscle pain Genitourinary - Male: No dysuria, No hematuria, No urinary frequency, No urinary urgency Neurologic: No memory loss, No paralysis, No weakness Psychiatric: No depression symptoms Endocrine: + fatigue Hematologic / Lymphatic: No abnormal bleeding/bruising Integumentary: No rash Allergic / Immunologic: No environmental allergies Physical Exam Vital Signs Date Time Temp Pulse Resp B/P Pulse Ox O2 Delivery O2 Flow Rate FiO2 11/19/16 02:43 118 18 123/70 91 Room Air 11/19/16 01:23 120 20 136/77 99 Room Air 11/19/16 00:51 121 11/18/16 23:41 117 18 169/93 99 Room Air 11/18/16 22:12 106 18 158/113 100 Room Air 11/18/16 21:11 102 11/18/16 20:43 36.7 110 20 110/68 100 Room Air General Appearance: WD/WN, no apparent distress, + pertinent finding (PLesant middle aged male in no distress) Head: normocephalic Eyes: normal inspection, PERRL, EOMI ENT: normal ENT inspection, pharynx normal Neck: supple, no JVD Respiratory/Chest: chest non-tender, lungs clear, normal breath sounds Cardiovascular: regular rate, rhythm, no JVD, + systolic murmur, + pertinent finding (3-4/6 systolic murmur - tachycardia - reg) Abdomen/GI: normal bowel sounds, non tender, soft Back: normal inspection, no CVA tenderness Extremities/Musculoskelatal: + pertinent finding (Dialysis graft R arm) 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, no motor/sensory deficits, alert, normal mood/affect, normal reflexes, oriented x 3 Skin: normal color, warm/dry, no rash Diagnostics Laboratory Results Results Past 24 Hours Test 11/18/16 21:00 11/18/16 21:10 11/18/16 21:29 11/18/16 21:39 Range/Units White Blood Count 1.23 4.8-10.8 K/uL Red Blood Count 3.39 4.7-6.1 M/uL Hemoglobin 10.7 14.0-18.0 g/dL Hematocrit 31.7 42-52 % Mean Corpuscular Volume 93.5 80-100 fL Mean Corpuscular Hemoglobin 31.6 25-34 pg Mean Corpuscular Hemoglobin Concent 33.8 32-36 g/dl Platelet Count 177 130-400 K/uL Mean Platelet Volume 11.3 7.4-10.4 fL RDW Standard Deviation 46.9 36.4-46.3 fL RDW Coefficient of Variation 13.7 11.5-14.5 % Neutrophils % (Manual) 71.8 % Band Neutrophils % (Manual) 0.0 % Lymphocytes % (Manual) 12.6 % Variant Lymphocytes % (manual) 0.0 % Monocytes % (Manual) 13.6 % Metamyelocytes % 1.0 % Myelocytes % 1.0 % Neutrophils # (Manual) 0.85 1.4-6.5 K/uL Total Absolute Neutrophils 0.85 1.4-6.5 K/uL Lymphocytes # (Manual) 0.15 1.2-3.4 K/uL Total Absolute Lymphocytes 0.15 1.2-3.4 K/uL Monocytes # (Manual) 0.16 0.11-0.59 K/uL Metamyelocytes # 0.01 0-0 K/uL Myelocytes # 0.01 0-0 K/uL Percent Large Granular Lymphocytes 0.0 % Dohle Bodies 1+ Large Platelets 1+ Prothrombin Time 11.8 9.0-12.0 SECONDS Prothromb Time International Ratio 1.1 0.9-1.1 Activated Partial Thromboplast Time 24.9 21.0-31.0 SECONDS Partial Thromboplastin Ratio 1.0 Sodium Level 137 136-145 mmol/L Potassium Level 4.3 3.5-5.1 mmol/L Chloride Level 102 98-107 mmol/L Carbon Dioxide Level 19 21-32 mmol/L Anion Gap 16.0 3-11 mmol/L Blood Urea Nitrogen 41 7-18 mg/dl Creatinine 2.60 0.60-1.40 mg/dl Est Creatinine Clear Calc Drug Dose 31.1 ml/min Estimated GFR () 29.3 Estimated GFR (Non- 25.3 BUN/Creatinine Ratio 15.9 10-20 Random Glucose 418 70-99 mg/dl Calcium Level 10.0 8.5-10.1 mg/dl Total Bilirubin 0.6 0.2-1 mg/dl Aspartate Amino Transf (AST/SGOT) 12 15-37 U/L Alanine Aminotransferase (ALT/SGPT) 16 12-78 U/L Alkaline Phosphatase 175 45-117 U/L Total Protein 7.2 6.4-8.2 gm/dl Albumin 3.9 3.4-5.0 gm/dl Globulin 3.3 2.5-4.0 gm/dl Albumin/Globulin Ratio 1.2 0.9-2 Beta-Hydroxybutyric Acid 8.65 0.2-2.81 mg/dL Influenza Type A Antigen Neg for Influ A NEG Influenza Type B Antigen Neg for Influ B NEG Bedside Troponin I 0.010 0-0.045 ng/ml Test 11/18/16 21:58 11/18/16 23:45 11/19/16 00:54 11/19/16 01:13 Range/Units Bedside Lactic Acid Venous 2.60 0.90-1.70 mmol/L Urine Color YELLOW Urine Appearance CLEAR CLEAR Urine pH 5.5 4.5-7.5 Urine Specific [place] 1.019 1.000-1.030 Urine Protein NEG NEG Urine Glucose (UA) 3+ NEG Urine Ketones NEG NEG Urine Occult Blood NEG NEG Urine Nitrite NEG NEG Urine Bilirubin NEG NEG Urine Urobilinogen NEG NEG Urine Leukocyte Esterase NEG NEG Urine WBC (Auto) 0 0-5 /hpf Urine RBC (Auto) 0-4 0-4 /hpf Urine Hyaline Casts (Auto) 1-5 0-5 /lpf Urine Epithelial Cells (Auto) 5-10 0-5 /lpf Urine Bacteria (Auto) NEG NEG Bedside Glucose 217 70-99 mg/dl Microbiology Results 11/18/16 Blood Culture, Received Pending 11/18/16 Blood Culture, Received Pending Diagnostic Radiology CXR LLL PNM Renal US - mild hydro Impression Assessment and Plan 61 y/o M w/Hx HTN, DM, ESRD - received a renal transplant 12/15. Pt presents with c/o productive cough, mild SOB and fever over past 2 days. He denies CP, N /V, back pain or dysuria. Initial w/u in ER suggests development of a LLL PNM. Labs reveal neutropenia, hyperglycemia and a rising creatinine. 1) Pneumonia - due to neutropenia, pt will be treated with Cefepime and Zithro pending culture results. Duonebs provided PRN - has not exhibited hypoxia. 2) Neutropenia - Pt's federal agent contacted and has advised on holding Cellcept and continuing Tacrolimus only until WBC recovers. 3) Elevated creatinine - transplant recipient - Creat appears to be climbing for 2 weeks. Pt states he had an appt with his [employer]per - Dr. Petty - at [place] 11/04 and that his creat was at baseline at the time (~ 1.9). We will consult the nephrology service, provide IVF and recheck a BMP AM. If creat continues to climb we should consider steroids and transfer to [place]. 4) DM/hyperglycemia - Placed on sliding scale and provided with a dose of Lantus - He uses an insulin pump normally however we have temporarily disabled this as his Glu was over 400 on arrival. 5) HTN - cont nifedipine with parameters. 6) CAD - no evidence of ACS at present - cont Plavix, ASA, Statin. full code - heparin prophylaxis Total time for this admit including chart review, review of labs, meds, imaging - discussion with ER attending and pt - 45 min Level of Care Med/Surg Resuscitation Status FULL RESUSCITATION VTE Prophylaxis VTE Risk Assessment Done? Y/N: Yes Risk Level: Moderate Given or contraindicated: Unfractionated heparin SQ
[2016-11-19 04:38] VITALS: Ht 180.3 cm; Wt 74.7 kg
[2016-11-19 04:45] VITALS: BP 98/52; PULSE 60; TEMP 37.2; O2SAT 97
[2016-11-19] MEDS ORDERED: MAGNESIUM SULFATE IV SCH (05:30)
[2016-11-19] MEDS ORDERED: INSULIN GLARGINE PER UNIT 10 UNITS in SYRINGE 0 ML SC ONE (05:30)
[2016-11-19] MEDS ORDERED: [UNRECOGNIZED DRUG - OTHER] IV SCH (05:30)
[2016-11-19] MEDS ORDERED: CEFEPIME CONSULT ACTIVE PRN ×2 (05:30)
[2016-11-19] MEDS ORDERED: PREMIXED IV SCH (05:30)
[2016-11-19] MEDS ORDERED: D5W IV SCH (05:30)
[2016-11-19] MEDS: HEPARIN SOD 5000 UNIT/0.5 ML CARP SQ SCH ×2 (05:58→13:53)
[2016-11-19] MEDS: SODIUM CHLORIDE 0.9% 1000ML 1,000 ML IV SCH ×2 (06:00→13:56)
--- NOTE | 2016-11-19 06:25 | DIAGNOSTIC IMAGING REPORT ---
RENAL TRANSPLANT ULTRASOUND CLINICAL HISTORY: Vomiting. Dehydration. Evaluate for rejection. COMPARISON STUDY: No previous studies for comparison. TECHNIQUE: Grayscale and color and duplex Doppler sonography of the right lower quadrant renal allograft was performed. FINDINGS: The right lower quadrant allograft measures 10.9 cm in maximal dimension. There is mild graft hydronephrosis. No perigraft fluid collection is present. The transplant renal artery and vein are patent. There is an elevated velocity likely at the anastomosis with a peak systolic velocity of 514 cm/s. The peak systolic velocity within the right iliac artery is 231 cm/s. The segmental waveforms within the allograft demonstrate normal upstrokes. Resistive indices are at the upper limits of normal, ranging from 0.65-0.8. Debris is noted within the bladder. Prevoid volume is 430 cc. Post void volume is 301 cc. IMPRESSION: 1. Mild dilatation of the right lower quadrant allograft collecting system. No perigraft fluid collection. 2. Patent transplant artery and vein. Elevated velocity at the transplant artery anastomosis could reflect a stenosis but the waveforms of the more distal vessels demonstrate normal upstrokes. Findings equivocal for stenosis. 3. Top normal resistive indices within the segmental vessels ranging from 0.65-0.8. 4. Debris within the bladder. Post void volume is 301 cc. Electronically signed by: Rubio Ibarra M.D. 11/19/2016 6:24 AM Dictated Date/Time: 11/19/2016 6:17 AM
[2016-11-19] MEDS ORDERED: NURSING VERBAL MED ORDER ONE (06:30)
[2016-11-19 06:53] LABS: ESTIMATED AVERAGE GLUCOSE 203 mg/dl; HA1C FLAG Normal (Normal)
[2016-11-19] MEDS ORDERED: INSULIN ASPART 100 UNITS/ML 3 ML PEN SC SCH ×2 (07:00→09:00)
[2016-11-19 07:09] VITALS: BP 110/69; PULSE 112; TEMP 37.5; O2SAT 96
[2016-11-19 08:36] LABS: CALCIUM 9.1 mg/dl (8.5-10.1); CREATININE 2.3 mg/dl (0.60-1.40); MAGNESIUM 1.7 mg/dl (1.8-2.4); POTASSIUM 4.1 mmol/L (3.5-5.1)
[2016-11-19 08:37] LABS: PHOSPHORUS 2.3 mg/dl (2.5-4.9)
[2016-11-19 08:43] LABS: HEMATOCRIT 28.8 % (42-52); MEAN CELL VOLUME 93.8 fL (80-100); MEAN CORPUSCULAR HEMOGLOBIN 31.6 pg (25-34); MEAN CORPUSCULAR HGB CONC 33.7 g/dl (32-36); MEAN PLATELET VOLUME 10.2 fL (7.4-10.4); PLATELET COUNT 131 K/uL (130-400); RED BLOOD COUNT 3.07 M/uL (4.7-6.1); WHITE BLOOD COUNT 0.62 K/uL (4.8-10.8)
[2016-11-19] MEDS ORDERED: ACYCLOVIR 200 MG CAP PO SCH (09:00)
[2016-11-19] MEDS ORDERED: DOCUSATE SODIUM 100 MG CAP PO SCH (09:00)
[2016-11-19] MEDS ORDERED: ATORVASTATIN 40 MG TAB PO SCH (09:00)
[2016-11-19] MEDS ORDERED: MAGNESIUM OXIDE 400 MG TAB PO SCH (09:00)
[2016-11-19] MEDS ORDERED: CITALOPRAM 40 MG TAB PO SCH (09:00)
[2016-11-19] MEDS ORDERED: PHARMACY GLYCEMIC MGMT CONSULT PRN (09:00)
[2016-11-19] MEDS ORDERED: CLOPIDOGREL BISULFATE 75 MG TAB PO SCH (09:00)
[2016-11-19] MEDS ORDERED: FLUDROCORTISONE ACETATE 0.1 MG TAB PO SCH (09:00)
[2016-11-19] MEDS ORDERED: TACROLIMUS 1 MG CAP PO SCH ×2 (09:00→21:00)
[2016-11-19] MEDS ORDERED: NIFEdipine 30 MG CR TAB PO SCH (09:00)
[2016-11-19] MEDS ORDERED: ASPIRIN 81 MG ECTAB PO SCH (09:00)
[2016-11-19] MEDS ORDERED: INSULIN ASPART 100 UNITS/ML 3 ML PEN SC ONE (10:45)
[2016-11-19] MEDS ORDERED: INSULIN GLARGINE SOLOSTAR 100 UNITS/ML 3 ML PEN SC ONE ×2 (10:45→21:00)
[2016-11-19] MEDS ORDERED: AZIT500I9 IV ×2 (10:53)
[2016-11-19] MEDS ORDERED: CEFE2INJ2 IV ×2 (10:53)
--- NOTE | 2016-11-19 10:55 | Discharge Instructions ---
Discharge Instructions Admission Admission Date: Nov 19, 2016 at 03:28 Admission Diagnosis: Left Lower Lobe Pneumonia. Discharge Care Plan - Problem: Medical Problems: (1) Dehydration (2) Hyperglycemia (3) Left lower lobe pneumonia (4) Neutropenic fever Care Plan - Goal(s): Improve function Care Plan - Instructions: Recommended Home Diet: 1800 Asif Wt Reduction, AHA Phase I (2gmNa/LoCho), Type 2 Diabetes Provider Instructions: Patient was accepted by Jam Lopez MD , to be transferred to [facility] VTE Core Measure Inpt VTE Proph given/why not?: Unfractionated heparin SQ Laboratory Results Test Results: Hemoglobin A1c Test 11/18/16 21:29 Range/Units Estimated Average Glucose 203 mg/dl Hemoglobin A1c 8.7 H 4.5-5.6 % José Miguel Flores Recommendations: Call your doctor if: * Temperature above 101 degrees * Pain not relieved by pain medicine ordered * There is increased drainage or redness from any incision * You have any unanswered questions or concerns. Your Doctors Instructions noted above were prepared by provider Jojo Yu.
--- NOTE | 2016-11-19 11:06 | Pharmacy Progress Note ---
Glycemic Control Intl Consult Date of Service Nov 19, 2016. Scope Glycemic Pharmacist consulted for glycemic control and to write orders per [facility] inpatient glycemic control protocol Objective Weight (Kilograms): 74.700 Accuchecks BSG (last 24hrs): Test 11/18/16 21:00 11/19/16 01:13 11/19/16 05:52 11/19/16 08:00 Random Glucose 418 mg/dl (70-99) 150 mg/dl (70-99) Bedside Glucose 217 mg/dl (70-99) 163 mg/dl (70-99) Test 11/19/16 08:29 Bedside Glucose 172 mg/dl (70-99) Laboratory Data (last 24hrs) Test 11/18/16 21:00 11/18/16 21:29 11/19/16 08:00 Anion Gap 16.0 mmol/L 13.0 mmol/L BUN/Creatinine Ratio 15.9 16.0 Blood Urea Nitrogen 41 mg/dl 37 mg/dl Creatinine 2.60 mg/dl 2.30 mg/dl Potassium Level 4.3 mmol/L 4.1 mmol/L Sodium Level 137 mmol/L 141 mmol/L White Blood Count 1.23 K/uL 0.62 K/uL Red Blood Count 3.39 M/uL Hemoglobin 10.7 g/dL Hematocrit 31.7 % Mean Corpuscular Volume 93.5 fL Mean Corpuscular Hemoglobin 31.6 pg Mean Corpuscular Hemoglobin Concent 33.8 g/dl Platelet Count 177 K/uL Mean Platelet Volume 11.3 fL Hemoglobin A1c 8.7 % HbA1c Test 11/18/16 21:29 Hemoglobin A1c 8.7 % (4.5-5.6) H Recent Pertinent Medications Outpatient Anti-diabetic Regimen: Insulin pump (parameters below per RUSTY Ramirez) * Basal (~21 units/24 hr) * 9797-6183: 1.4 units/hr * 8911-4368: 1.2 units/hr * 2807-1449: 0.6 units/hr * 4490-0838: 0.8 units/hr * 0203-4697: 0.6 units/hr * 6028-4336: 1.0 units/hr * 1 unit insulin for every 12 g CHO consumed Risk Factors for Insulin Resistance: * Infection * Diet Risk Factors for Insulin Sensitivity: * Type 1 diabetes * MELO Assessment & Plan ASSESSMENT: * ADA & AACE recommend a goal blood sugar range 140-180 mg/dl for the majority of critically ill & non-critically ill patients. However, more stringent targets may be selected in individual cases. 11/19/16 * 61 yo M with Type 1 diabetes (adriano Ramirez, RUSTY) admitted for PNA / neutropenia * BSG on arrival last night > 400 mg/dL. Insulin pump was turned off and patient was administered regular insulin 5 units IV x1. BSG's trended down nicely to 163 mg/dL this AM * Lantus 10 units x1 admin this AM. Will give another dose now for total daily dose at ~ 15% reduction as compared to home basal rate 2nd increased risk for insulin sensitivity 2nd MELO * Will start home carb ratio. Selected correction factor based on what would be suggested by known carb ratio. * Will have higher goal range initially to prevent hypoglycemia * Lunch BSG elevated to 330 mg/dL after not eating breakfast (adriano Ramirez, RUSTY). This is likely 2nd to "abrupt" discontinuation of basal insulin yesterday (when pump dc'd) and Lantus administered today not being fully on-board * Will give 3 units IVP x1 now to be administered with Novolog. * Will add order for small supplemental dose of Lantus this evening for BSG > 200 mg/dL * Will add in overnight BSG check x1 PLAN FOR INPATIENT GLYCEMIC CONTROL: * Regular insulin 3 units IVP x1 now for BSG of 330 mg/dL * Additional basal insulin with LANTUS 8 units SQ x1 (for a total dose of 18 units this AM) * Basal insulin with LANTUS 4 units SQ x1 at tonight *if* BSG > 200 mg/dL * Basal insulin with LANTUS based on BSG (starting 11/20 AM) * 12 units for BSG < 100 mg/dL * 14 units for BSG 100-119 mg/dL * 18 units for BSG 120-199 mg/dL * 22 units for BSG 200 mg/dL or greater * Correctional Insulin with NOVOLOG per scale ACHS or Q6hrs while NPO - additional check at 0200 * Goal Range: Low 120 mg/dL - High 160 mg/dL * Correction Factor: 35 mg/dL/unit * Nutritional / Prandial insulin per carb ratio of 1 unit per 12 grams CHO consumed * Please note that the plan above was derived based on current level of insulin resistance and hospital stress. These recommendations are appropriate for inpatient admission only. Plan of care upon discharge will need to be reassessed to avoid potential outpatient hypo/hyperglycemia. Thank you.
--- NOTE | 2016-11-19 11:19 | Discharge Summary ---
Discharge Summary Admission Date: Nov 19, 2016 at 03:28 Discharge Date: Nov 19, 2016 Discharge Disposition: Acute care facility Problems/Secondary Diagnoses: Severe neutropenia Left lower lobe density/pneumonia MELO/CKD transplanted kidney Obstructive uropathy Diabetes Hypertension Kidney transplant recipient Procedures: Medication Reconciliation New Medications: Azithromycin (Azithromycin) 500 Mg Inj 500 GM IV DAILY for 7 Days Cefepime Hcl (Cefepime) 2 Gm Inj 2 GM IV Q12 for 7 Days Continued Medications: Acetaminophen (Tylenol) 325 Mg Tab 650 MG PO Q6 PRN for Pain, TAB Aspirin (Aspirin 81 Low Dose) 81 Mg Chw 81 MG PO QAM Atorvastatin (Lipitor) 40 Mg Tab 40 MG PO QAM, TAB Bisacodyl (Bisacodyl) 10 Mg Sup 10 MG RE DAILY PRN for Constipation Citalopram (Citalopram Hydrobromide) 40 Mg Tab 40 MG PO QAM Clopidogrel (Plavix) 75 Mg Tab 75 MG PO QAM, TAB Docusate Sodium (Docusate Sodium) 100 Mg Cap 100 MG PO BID Fludrocortisone Acetate (Florinef) 0.1 Mg Tab 0.1 MG PO DAILY, TAB Magnesium Oxide (Mag-Ox) 400 Mg Tab 400 MG PO BID, TAB Oxycodone Ir (Roxicodone Ir) 5 Mg Tab 5-10 MG PO Q4H PRN for Severe Pain, TAB Tacrolimus (Prograf) 1 Mg Cap 8 MG PO QPM Tacrolimus (Prograf) 1 Mg Cap 9 MG PO QAM Discontinued Medications: Acyclovir (Zovirax) 200 Mg Cap 200 MG PO BID, CAP Cephalexin Monohydrate (Keflex) 500 Mg Cap 500 MG PO QID, #40 CAP Mycophenolate Mofetil (Cellcept) 250 Mg Cap 1000 MG PO BID Nifedipine Ext Rel (Procardia Xl Ext Rel) 30 Mg Tabcr 30 MG PO QAM, TAB Discharge Exam Review of Systems: Constitutional: + chills, + fever Eyes: No diplopia, No discharge, No eye pain, No problem reported, No redness, No worsening of vision ENT: No dental problems, No hearing loss, No nasal symptoms, No problem reported, No sore throat, No tinnitus, No trouble swallowing, No unusual epistaxis Respiratory: No cough, No dyspnea at rest, No dyspnea on exertion, No hemoptysis, No problem reported, No shortness of breath, No sputum, No wheezing Cardiovascular: No PND, No chest pain, No claudication, No edema, No orthopnea, No palpitations, No problem reported Abdomen: + nausea, + vomiting Musculoskeletal: No calf pain, No joint pain, No muscle pain, No problem reported, No swelling Genitourinary - Male: No dysuria, No hematuria, No impotence, No lesions, No penile discharge, No problem reported, No urinary frequency, No urinary hesitancy, No urinary incontinence, No urinary retention, No urinary urgency Neurologic: No balance problems, No memory loss, No numbness/tingling, No paralysis, No problem reported, No vertigo, No weakness Psychiatric: No anhedonism, No anxiety, No depression symptoms, No insomnia , No problem reported, No substance abuse Endocrine: + fatigue, No excessive thirst, No excessive urination, No problem reported Hematologic / Lymphatic: No abnormal bleeding/bruising, No clotting problems , No night sweats, No problem reported, No swollen lymph nodes Integumentary: No bleeding, No color change, No itch, No new/changing skin lesions, No problem reported, No rash Physical Exam: General Appearance: + moderate distress Eyes: normal inspection, EOMI ENT: normal ENT inspection, hearing grossly normal Neck: supple Respiratory/Chest: + decreased breath sounds, + rales Cardiovascular: regular rate, rhythm, + systolic murmur Abdomen / GI: normal bowel sounds, non tender, soft, no organomegaly, no pulsatile mass Extremities: normal inspection, no calf tenderness, normal capillary refill , no pedal edema 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 hr is on cellcept/prograf/acyclovir/florinef He complained of constant illness for 1-2 weeks. The patient reports that he has been sick for a couple of weeks but it has significantly worsened over the last week. He complained of severe progressive vomiting and non-productive cough symptoms associated with shortness of breath that is worsened with walking, chest soreness from coughing, weakness, dizziness, and diarrhea. The patient denies any urinary symptoms and fever. his creatinine was found to be 2.6 (base line 1.9) after 2 L boluses and 125cc / hour improved to 2.3 US renal showed dilated pelvic system in transplanted kidney and bladder debris , Dr. Lopez recommended a brunson also WBC was found to be 1.2 , with neutrophils of 800, Dr. Lopez recommended to hold CellCept and acyclovir today his WBC dropped to 0.6 total, no differential done but likely neutrophils are less than 400. CXR showed faint LL density, he was started on cefepime and azithromycin. Discussed the case with Dr. Lopez and he accepted the patient to go to transplant unit Family History Diabetes mellitus Heart disease Hypertension Lung disease Social History Smoking Status: Former Smoker Alcohol Use: none Housing Status: lives alone Occupation Status: retired Current/Historical Medications Scheduled Acyclovir (Zovirax), 200 MG PO BID Aspirin (Aspirin 81 Low Dose), 81 MG PO QAM Atorvastatin (Lipitor), 40 MG PO QAM Cephalexin Monohydrate (Keflex), 500 MG PO QID Citalopram (Citalopram Hydrobromide), 40 MG PO QAM Clopidogrel (Plavix), 75 MG PO QAM Docusate Sodium (Docusate Sodium), 100 MG PO BID Fludrocortisone Acetate (Florinef), 0.1 MG PO DAILY Magnesium Oxide (Mag-Ox), 400 MG PO BID Mycophenolate Mofetil (Cellcept), 1,000 MG PO BID Nifedipine Ext Rel (Procardia Xl Ext Rel), 30 MG PO QAM Tacrolimus (Prograf), 8 MG PO QPM Tacrolimus (Prograf), 9 MG PO QAM Scheduled PRN Acetaminophen (Tylenol), 650 MG PO Q6 PRN for Pain Bisacodyl (Bisacodyl), 10 MG RE DAILY PRN for Constipation Oxycodone Ir (Roxicodone Ir), 5-10 MG PO Q4H PRN for Severe Pain Allergies Coded Allergies: Morphine (Unverified Allergy, Unknown, NAUSEA, 11/18/16) Zolpidem (Unverified Allergy, Unknown, UNKNOWN, 11/18/16) Physical Ex - ED Scribe Physical Exam Vital Signs Date Time Temp Pulse Resp B/P Pulse Ox O2 Delivery O2 Flow Rate FiO2 11/19/16 01:23 120 20 136/77 99 Room Air 11/19/16 00:51 121 11/18/16 23:41 117 18 169/93 99 Room Air 11/18/16 22:12 106 18 158/113 100 Room Air 11/18/16 21:11 102 11/18/16 20:43 36.7 110 20 110/68 100 Room Air Physical Exam Constitutional: Vital signs reviewed. Eyes: Pupils are equal round reactive to light. Conjunctiva are noninjected. ENT: Pharynx is clear without erythema or exudate. Mucous membranes are dry. Neck supple without meningeal signs. Respiratory: Clear to auscultation bilaterally. Breath sounds are equal bilaterally. Cardiovascular: Tachycardic rate of 103 and rhythm. No rubs or gallops. GI: Soft, nondistended and nontender. Bowel sounds are present. No tenderness over his graft. Musculoskeletal: No peripheral edema. No lower extremity tenderness. Integumentary: No cyanosis. Neurological: The patient is awake and alert. No focal deficits. Psychiatric: Normal affect. Procedures - ED Scribe Medical Decision & Procedures ER Provider Diagnostic Interpretation: X-ray results as stated below per interpretation by me and the radiologist. Other radiology results as stated below per my review and the radiologist's interpretation: CHEST ONE VIEW PORTABLE FINDINGS: Developing infiltrative process medial left lung base. Lungs otherwise appear clear. Diaphragms are smooth. IMPRESSION: Minimal developing parenchymal infiltrate medial left base Electronically signed by: Noah Mata M.D. 11/18/2016 9:44 PM Dictated Date/Time: 11/18/2016 9:43 PM US OTHER - Renal Transplant: Mild hydronephrosis. Resistive indices are within normal limits measuring 0.65-0.8. Tiny 4mm lower pole cyst. Iliac artery velocity 231cm/s. Main renal artery anastomosis velocity 514cm/s ( decreased). No priors available to establish trend. Suggest followup to exclude stenosis. Main renal vein and iliac vein appear patent. Bladder debris. Bladder volume pre-void 438mL, postvoid 301mL. Radiologist: Hari Balderrama M.D. Laboratory Results 11/18/16 21:00 Red Blood Count 3.39, Mean Corpuscular Volume 93.5, Mean Corpuscular Hemoglobin 31.6, Mean Corpuscular Hemoglobin Concent 33.8, Mean Platelet Volume 11.3 Test 11/18/16 21:00 11/18/16 21:10 11/18/16 21:29 11/18/16 21:39 White Blood Count 1.23 K/uL (4.8-10.8) Red Blood Count 3.39 M/uL (4.7-6.1) Hemoglobin 10.7 g/dL (14.0-18.0) Hematocrit 31.7 % (42-52) Mean Corpuscular Volume 93.5 fL (80-100) Mean Corpuscular Hemoglobin 31.6 pg (25-34) Mean Corpuscular Hemoglobin Concent 33.8 g/dl (32-36) Platelet Count 177 K/uL (130-400) Mean Platelet Volume 11.3 fL (7.4-10.4) RDW Standard Deviation 46.9 fL (36.4-46.3) RDW Coefficient of Variation 13.7 % (11.5-14.5) Neutrophils % (Manual) 71.8 % Band Neutrophils % (Manual) 0.0 % Lymphocytes % (Manual) 12.6 % Variant Lymphocytes % (manual) 0.0 % Monocytes % (Manual) 13.6 % Metamyelocytes % 1.0 % Myelocytes % 1.0 % Neutrophils # (Manual) 0.85 K/uL (1.4-6.5) Total Absolute Neutrophils 0.85 K/uL (1.4-6.5) Lymphocytes # (Manual) 0.15 K/uL (1.2-3.4) Total Absolute Lymphocytes 0.15 K/uL (1.2-3.4) Monocytes # (Manual) 0.16 K/uL (0.11-0.59) Metamyelocytes # 0.01 K/uL (0-0) Myelocytes # 0.01 K/uL (0-0) Percent Large Granular Lymphocytes 0.0 % Dohle Bodies 1+ Large Platelets 1+ Prothrombin Time 11.8 SECONDS (9.0-12.0) Prothromb Time International Ratio 1.1 (0.9-1.1) Activated Partial Thromboplast Time 24.9 SECONDS (21.0-31.0) Partial Thromboplastin Ratio 1.0 Est Creatinine Clear Calc Drug Dose 31.1 ml/min Total Bilirubin 0.6 mg/dl (0.2-1) Aspartate Amino Transf (AST/SGOT) 12 U/L (15-37) Alanine Aminotransferase (ALT/SGPT) 16 U/L (12-78) Alkaline Phosphatase 175 U/L (45-117) Total Protein 7.2 gm/dl (6.4-8.2) Albumin 3.9 gm/dl (3.4-5.0) Globulin 3.3 gm/dl (2.5-4.0) Albumin/Globulin Ratio 1.2 (0.9-2) Beta-Hydroxybutyric Acid 8.65 mg/dL (0.2-2.81) Influenza Type A Antigen Neg for Influ A (NEG) Influenza Type B Antigen Neg for Influ B (NEG) Bedside Troponin I 0.010 ng/ml (0-0.045) Test 11/18/16 21:58 11/18/16 23:45 11/19/16 00:54 11/19/16 01:13 Bedside Lactic Acid Venous 2.60 mmol/L (0.90-1.70) Urine Color YELLOW Urine Appearance CLEAR (CLEAR) Urine pH 5.5 (4.5-7.5) Urine Specific [place] 1.019 (1.000-1.030) Urine Protein NEG (NEG) Urine Glucose (UA) 3+ (NEG) Urine Ketones NEG (NEG) Urine Occult Blood NEG (NEG) Urine Nitrite NEG (NEG) Urine Bilirubin NEG (NEG) Urine Urobilinogen NEG (NEG) Urine Leukocyte Esterase NEG (NEG) Urine WBC (Auto) 0 /hpf (0-5) Urine RBC (Auto) 0-4 /hpf (0-4) Urine Hyaline Casts (Auto) 1-5 /lpf (0-5) Urine Epithelial Cells (Auto) 5-10 /lpf (0-5) Urine Bacteria (Auto) NEG (NEG) Bedside Glucose 217 mg/dl (70-99) Laboratory results as reviewed by me. Medications Administered Medications (Trade) Dose Ordered Sig/Jose Route Start Time Stop Time Status Last Admin Dose Admin Sodium Chloride (Nss 1000ml) 1,000 ml @ 999 mls/hr Q1H1M STAT IV 11/18/16 21:18 11/18/16 22:18 DC 11/18/16 21:18 999 MLS/HR Ondansetron HCl 4 mg 4 mg NOW STAT IV 11/18/16 21:18 11/18/16 21:21 DC 11/18/16 21:34 4 MG Cefepime HCl/ Dextrose (Maxipime IV/D5 100ml) 112.5 ml @ 200 mls/hr NOW STAT IV 11/18/16 22:42 11/18/16 23:15 DC 11/18/16 23:59 200 MLS/HR Insulin Human Regular 5 units 5 units NOW STAT IV 11/18/16 23:12 11/18/16 23:13 DC 11/19/16 00:11 5 UNITS Promethazine HCl 12.5 mg/Sodium Chloride 50.5 ml @ 204 mls/hr ONE STAT IV 11/19/16 01:31 11/19/16 01:45 DC 11/19/16 01:46 204 MLS/HR Azithromycin/ Dextrose (Zithromax IV/D5 250ml) 255 ml @ 125 mls/hr ONE STAT IV 11/19/16 01:25 11/19/16 03:27 11/19/16 01:46 125 MLS/HR ECG Indication: vomiting Rate (beats per minute): 104 Rhythm: sinus tachycardia Findings: no acute ischemic change, no ectopy ED Course 0: The patient was evaluated in room B5. A complete history and physical exam was performed. 2118: Zofran Inj 4mg IV, Sodium Chloride 1000 ml @ 999 mls/hr IV. 2242: Cefepime HCl 2000mg/Dextrose 112.5ml @ 200mls/hr IV. 2312: Insulin Human Regular 5 units IV. 2339: I reevaluated the patient and discussed his test results. 0045: I spoke to Rebekah Petty from the [place] transplant team. She suggested hydration, give antibiotics, and stop the asdpfoiu. 0108: Dr. Ramos notes that the patient is from [facility]. 0124: I spoke with Dr. Cornejo of [facility]. We discussed the patient and his results. The patient will be further evaluated by him. Dr. Cornejo suggested that we give Zithromax to cover atypical pathogens. Medical Decision This is a 61-year-old male presents with vomiting and cough. Differential diagnosis includes pneumonia, neutropenia, influenza, dehydration, rejection, sepsis. I did perform a limited focused review of portions of the patient's old chart on the electronic medical record. The patient was seen here yesterday for dizziness, vomiting, and chest congestion. He has a history of kidney transplant 3 months ago. He had a white count of .98, his creatinine was 2.8, and his blood sugar was 371. Total Time Spent: Greater than 30 minutes This includes examination of the patient, discharge planning, medication reconciliation, and communication with other providers. Discharge Instructions Please refer to the electronic Patient Visit Report (Discharge Instructions) for additional information.
[2016-11-19] MEDS ORDERED: CEFEPIME IV 2,000 MG in DEXTROSE 5% 100ML 100 ML IV SCH (12:00)
--- NOTE | 2016-11-19 12:14 | Nephrology Consultation ---
Nephrology Consultation Date & Providers Date of Consultation: Nov 19, 2016. Primary Care Provider: Charles Chaudhari M.D. Referring Provider: Reason for Consultation Evaluation and management for acute kidney injury with history of renal transplant, on immunosuppression. History of Present Illness Mr. Clemons insert 59-year-old gentlemen with past medical history significant for end-stage renal disease status post am renal transplant in August 2016 current stage III CKD hypertension, diabetes admitted to the hospital with them community-acquired pneumonia. Nephrologic consult was requested to for management of acute kidney injury, immunosuppression. Electronic medical records including labs and imaging are reviewed in detail during patient's visit. Mr. Clemons has been feeling unwell for last few weeks which worsened over last 2 days, he was having decreased p.o. intake, nausea, vomiting, diarrhea, cough low-grade fever and chills at home. On admission he was found to a left middle lobe pneumonia and acute kidney injury. He was started with IV hydration and broad-spectrum antibiotic. Currently blood pressure stable but continues to feel poorly. Has history of end-stage renal disease on hemodialysis for 5 years until renal transplant in August 2016 at [facility] transplant center. His baseline creatinine has been around 1.8-1.9. On admission creatinine was at 2.6 which slightly improved to 2.3 this morning receive 2 L of IV fluid and currently normal saline 25 mL/hour. continued on Prograf and CellCept is being held due to nausea and vomiting and neutropenia. Allograft ultrasound was otherwise unremarkable although there was mild pelvic caliectasis. Denies any voiding symptoms and last few days has been urinating normally. Prior Prograf levels has been therapeutic and did not have any episode of acute rejection since transplant. Allergies Coded Allergies: Morphine (Unverified Allergy, Unknown, NAUSEA, 11/18/16) Zolpidem (Unverified Allergy, Unknown, UNKNOWN, 11/18/16) Inpatient Medications Current Inpatient Medications Medications (Trade) Dose Ordered Sig/Jose Route Start Time Stop Time Status Last Admin Dose Admin Acyclovir (Zovirax Cap) 200 mg BID PO 11/19/16 09:00 11/29/16 08:59 Aspirin (Ecotrin Tab) 81 mg QAM PO 11/19/16 09:00 12/19/16 08:59 Atorvastatin Calcium (Lipitor Tab) 40 mg QAM PO 11/19/16 09:00 12/19/16 08:59 Citalopram Hydrobromide (celeXA TAB) 40 mg QAM PO 11/19/16 09:00 12/19/16 08:59 Clopidogrel Bisulfate (plAVix TAB) 75 mg QAM PO 11/19/16 09:00 12/19/16 08:59 Docusate Sodium (coLACE CAP) 100 mg BID PO 11/19/16 09:00 12/19/16 08:59 Fludrocortisone Acetate (Florinef Tab) 0.1 mg DAILY PO 11/19/16 09:00 12/19/16 08:59 Magnesium Oxide (Mag-Ox Tab) 400 mg BID PO 11/19/16 09:00 12/19/16 08:59 Nifedipine (Procardia Xl Tab) 30 mg QAM PO 11/19/16 09:00 12/19/16 08:59 Oxycodone HCl (Roxicodone Immediate Rel Tab) 10 mg Q4H PRN PO 11/19/16 03:15 12/03/16 03:14 Tacrolimus (Prograf Cap) 8 mg QPM PO 11/19/16 21:00 12/19/16 20:59 Tacrolimus (Prograf Cap) 9 mg QAM PO 11/19/16 09:00 12/19/16 08:59 Heparin Sodium (Porcine) (Heparin Sq 5000 Unit/0.5ml) 5,000 unit Q8H SQ 11/19/16 06:00 12/19/16 05:59 11/19/16 05:58 5,000 UNIT Acetaminophen (Tylenol Tab) 650 mg Q4H PRN PO 11/19/16 03:15 12/19/16 03:14 Al Hydrox/Mg Hydrox/Simethicone (Maalox Max Susp) 15 ml Q4H PRN PO 11/19/16 03:15 12/19/16 03:14 Magnesium Hydroxide (Milk Of Magnesia Susp) 30 ml Q6H PRN PO 11/19/16 03:15 12/19/16 03:14 Polyethylene (Miralax Powder Packet) 17 gm DAILY PRN PO 11/19/16 04:15 12/19/16 04:14 Ondansetron HCl (Zofran Inj) 4 mg Q6H PRN IV 11/19/16 03:15 12/19/16 03:14 Albuterol/ Ipratropium (Duoneb) 3 ml Q6H PRN INH 11/19/16 03:15 12/19/16 03:14 Insulin Aspart SLIDING SCALE G... ACHS SC 11/19/16 07:00 12/19/16 06:59 Cefepime HCl 2000 mg/Dextrose 112.5 ml @ 200 mls/hr Q12H IV 11/19/16 12:00 11/26/16 11:59 Azithromycin 500 mg/Dextrose 255 ml @ 125 mls/hr Q24H IV 11/20/16 02:00 11/27/16 01:59 Sodium Chloride (Nss 1000ml) 1,000 ml @ 125 mls/hr Q8H IV 11/19/16 05:30 12/19/16 05:29 11/19/16 06:00 125 MLS/HR Cefepime HCl (Consult) 1 ea UD PRN N/A 11/19/16 05:30 12/19/16 05:29 Miscellaneous Information (Consult Glycemic Management Pharmacy) 1 ea UD PRN N/A 11/19/16 09:00 12/19/16 08:59 Family History Diabetes mellitus Heart disease Hypertension Lung disease Social History Smoking Status: Former Smoker Alcohol Use: none Occupation: retired Review of Systems A complete review of systems was performed. Pertinent positives are noted above. All other systems are negative. Physical Exam Date Time Temp Pulse Resp B/P Pulse Ox O2 Delivery O2 Flow Rate FiO2 11/19/16 07:09 37.5 112 14 110/69 96 11/19/16 04:45 37.2 60 18 98/52 97 Room Air 11/19/16 04:40 Room Air 11/19/16 04:38 Room Air 11/19/16 03:56 105 18 118/69 96 Room Air 11/19/16 02:43 118 18 123/70 91 Room Air 11/19/16 01:23 120 20 136/77 99 Room Air 11/19/16 00:51 121 11/18/16 23:41 117 18 169/93 99 Room Air 11/18/16 22:12 106 18 158/113 100 Room Air 11/18/16 21:11 102 11/18/16 20:43 36.7 110 20 110/68 100 Room Air GENERAL:middle aged male, AAA x 3, pleasant, ill-appearing, not in any distress. HEENT: Atraumatic, normocephalic. NECK: Supple, no JVD, no carotid bruit appreciated. ENT: No sinus tenderness MOUTH and THROAT: Moist oral mucosa, no oral ulcer or pharyngeal erythema RESPIRATORY: Normal breathing efforts, no accessory muscle use, clear to auscultation bilaterally, no wheezes or rales. CARDIOVASCULAR: S1, S2 normal, rate rhythm regular. ABDOMEN: Soft, nontender, positive bowel sound. MUSCULOSKELETAL: No CVA tenderness. No joint swelling, erythema or tenderness. Normal range of motion. SKIN: No skin rash EXTREMITY: No lower extremity edema NEURO: No gross focal neurological deficit, speech fluent. PSYCHIATRY: Normal mood and judgment Laboratory Results Last 24 Hours Test 11/18/16 21:00 11/18/16 21:10 11/18/16 21:29 11/18/16 21:39 White Blood Count 1.23 K/uL Red Blood Count 3.39 M/uL Hemoglobin 10.7 g/dL Hematocrit 31.7 % Mean Corpuscular Volume 93.5 fL Mean Corpuscular Hemoglobin 31.6 pg Mean Corpuscular Hemoglobin Concent 33.8 g/dl Platelet Count 177 K/uL Mean Platelet Volume 11.3 fL RDW Standard Deviation 46.9 fL RDW Coefficient of Variation 13.7 % Neutrophils % (Manual) 71.8 % Band Neutrophils % (Manual) 0.0 % Lymphocytes % (Manual) 12.6 % Variant Lymphocytes % (manual) 0.0 % Monocytes % (Manual) 13.6 % Metamyelocytes % 1.0 % Myelocytes % 1.0 % Neutrophils # (Manual) 0.85 K/uL Total Absolute Neutrophils 0.85 K/uL Lymphocytes # (Manual) 0.15 K/uL Total Absolute Lymphocytes 0.15 K/uL Monocytes # (Manual) 0.16 K/uL Metamyelocytes # 0.01 K/uL Myelocytes # 0.01 K/uL Percent Large Granular Lymphocytes 0.0 % Dohle Bodies 1+ Large Platelets 1+ Prothrombin Time 11.8 SECONDS Prothromb Time International Ratio 1.1 Activated Partial Thromboplast Time 24.9 SECONDS Partial Thromboplastin Ratio 1.0 Sodium Level 137 mmol/L Potassium Level 4.3 mmol/L Chloride Level 102 mmol/L Carbon Dioxide Level 19 mmol/L Anion Gap 16.0 mmol/L Blood Urea Nitrogen 41 mg/dl Creatinine 2.60 mg/dl Est Creatinine Clear Calc Drug Dose 31.1 ml/min Estimated GFR () 29.3 Estimated GFR (Non- 25.3 BUN/Creatinine Ratio 15.9 Random Glucose 418 mg/dl Calcium Level 10.0 mg/dl Total Bilirubin 0.6 mg/dl Aspartate Amino Transf (AST/SGOT) 12 U/L Alanine Aminotransferase (ALT/SGPT) 16 U/L Alkaline Phosphatase 175 U/L Total Protein 7.2 gm/dl Albumin 3.9 gm/dl Globulin 3.3 gm/dl Albumin/Globulin Ratio 1.2 Beta-Hydroxybutyric Acid 8.65 mg/dL Influenza Type A Antigen Neg for Influ A Influenza Type B Antigen Neg for Influ B Estimated Average Glucose 203 mg/dl Hemoglobin A1c 8.7 % Bedside Troponin I 0.010 ng/ml Test 11/18/16 21:58 11/18/16 23:45 11/19/16 01:13 11/19/16 05:52 Bedside Lactic Acid Venous 2.60 mmol/L Urine Color YELLOW Urine Appearance CLEAR Urine pH 5.5 Urine Specific [place] 1.019 Urine Protein NEG Urine Glucose (UA) 3+ Urine Ketones NEG Urine Occult Blood NEG Urine Nitrite NEG Urine Bilirubin NEG Urine Urobilinogen NEG Urine Leukocyte Esterase NEG Urine WBC (Auto) 0 /hpf Urine RBC (Auto) 0-4 /hpf Urine Hyaline Casts (Auto) 1-5 /lpf Urine Epithelial Cells (Auto) 5-10 /lpf Urine Bacteria (Auto) NEG Bedside Glucose 217 mg/dl 163 mg/dl Test 11/19/16 08:00 11/19/16 08:29 White Blood Count 0.62 K/uL Red Blood Count 3.07 M/uL Hemoglobin 9.7 g/dL Hematocrit 28.8 % Mean Corpuscular Volume 93.8 fL Mean Corpuscular Hemoglobin 31.6 pg Mean Corpuscular Hemoglobin Concent 33.7 g/dl RDW Standard Deviation 47.2 fL RDW Coefficient of Variation 13.8 % Platelet Count 131 K/uL Mean Platelet Volume 10.2 fL Sodium Level 141 mmol/L Potassium Level 4.1 mmol/L Chloride Level 108 mmol/L Carbon Dioxide Level 20 mmol/L Anion Gap 13.0 mmol/L Blood Urea Nitrogen 37 mg/dl Creatinine 2.30 mg/dl Est Creatinine Clear Calc Drug Dose 35.2 ml/min Estimated GFR () 34.0 Estimated GFR (Non- 29.3 BUN/Creatinine Ratio 16.0 Random Glucose 150 mg/dl Calcium Level 9.1 mg/dl Phosphorus Level 2.3 mg/dl Magnesium Level 1.7 mg/dl Bedside Glucose 172 mg/dl Impression (1) Acute kidney injury (2) Renal transplant recipient (3) Hypertension (4) Anemia (5) Left lower lobe pneumonia (6) Diabetes 62-year-old gentlemen renal transplant current baseline creatinine 1.8-1.9 admitted with 2/3 weeks h/o cough, fatigue and weakness, low grade fever, nausea and vomiting found to have pneumonia and acute kidney injury. Currently on empiric antibiotic therapy and IV hydration. Considering patient's immunosuppressed state there is concern for opportunistic infection. Allograft ultrasound was otherwise unremarkable, acute kidney injury could be hemodynamically mediated acute allograft rejection or tacrolimus toxicity. Recommendations --continue on current dose of Prograf --Continue to hold CellCept -- as patient had been having the symptoms more than 3 weeks now and with history of recent transplant, currently high dose of immunosuppressive therapy complicated by neutropenia, pneumonia and acute allograft dysfunction, agree with transferring patient to the transplant center for better monitoring of kidney function and other evaluation including evaluation for allograft rejection or significant opportunistic infection. Thank you for the consult. Will sign off
[2016-11-19] MEDS: INSULIN ASPART 100 UNITS/ML 3 ML PEN SC SCH ×2 (13:53→18:20)
[2016-11-19] MEDS ORDERED: INSULIN REGULAR IV ONE (14:00)
[2016-11-19 14:58] VITALS: BP 98/60; PULSE 93; TEMP 36.9; O2SAT 96
[2016-11-19 19:22] VITALS: BP 98/60; PULSE 93; TEMP 36.9; O2SAT 96
[2016-11-19] MEDS ORDERED: IMIPENEM/CILASTATIN CONSULT ACTIVE PRN (19:45)
[2016-11-19] MEDS ORDERED: IMIPENEM/CILASTATIN IV 500 MG in DEXTROSE 5% 100ML 100 ML IV SCH (20:00)
[2016-11-20] MEDS ORDERED: INSULIN ASPART 100 UNITS/ML 3 ML PEN SC SCH (02:00)
[2016-11-20] MEDS ORDERED: AZITHROMYCIN IV 500 MG in DEXTROSE 5% 250ML 250 ML IV SCH (02:00)
[2016-11-20] MEDS ORDERED: INSULIN GLARGINE SOLOSTAR 100 UNITS/ML 3 ML PEN SC SCH (09:00)
[2017-01-23] MEDS ORDERED: TACR1CAP PO ×2 (16:12)
[2017-01-23] MEDS ORDERED: CARV3.122 PO (16:12)
[2017-01-23] MEDS ORDERED: SUMA100T16 PO (16:12)
[2017-01-23] MEDS ORDERED: ACET-1311 PO (16:12)
[2017-01-23] MEDS ORDERED: ASPI81TA28 PO (16:12)
[2017-01-23] MEDS ORDERED: MAGN400T6 PO (16:12)
[2017-01-23] MEDS ORDERED: MYCO250C26 PO (16:12)
[2017-01-23] MEDS ORDERED: SPT/ PO (16:12)
[2017-01-23] MEDS ORDERED: ATOR-24 PO ×2 (17:00)
[2017-01-23] MEDS ORDERED: CLX40 PO ×2 (17:00)
[2017-01-23] MEDS ORDERED: CLOP1TAB15 PO ×2 (17:00)
[2017-01-30] MEDS ORDERED: INSPMPNVLG (09:24)
[2017-01-30] MEDS ORDERED: CRG25 PEG (15:16)
[2017-01-30] MEDS ORDERED: AMLO2.5T PO (15:45)
[2017-01-30] MEDS ORDERED: PANT40TA PO (15:45)
[2017-01-30] MEDS ORDERED: CRG25 PO (17:25)
== END 2016-11-19 20:07 | disposition short-term general hospital (02) | DRG 193 ==
LOC: CANRESERV → ENRESERVDT → ENRESERVTM → C.EDB 20:39 → C.MSW 11-19 03:28 → EDBEDREQSVC 11-19 03:41
PROVIDERS: ADMIT Internal Medicine; ATTEND Internal Medicine
DX: J18.9 Pneumonia, unspecified organism (principal); N17.9 Acute kidney failure, unspecified; Z94.0 Kidney transplant status; E27.49 Other adrenocortical insufficiency; E11.65 Type 2 diabetes mellitus with hyperglycemia; D70.9 Neutropenia, unspecified; I25.10 Atherosclerotic heart disease of native coronary artery without angina pectoris; R79.89 Other specified abnormal findings of blood chemistry; E78.5 Hyperlipidemia, unspecified; Z83.3 Family history of diabetes mellitus; Z82.49 Family history of ischemic heart disease and other diseases of the circulatory system; Z79.82 Long term (current) use of aspirin; Z87.891 Personal history of nicotine dependence; D64.9 Anemia, unspecified; J20.9 Acute bronchitis, unspecified; D89.9 Disorder involving the immune mechanism, unspecified; I12.0 Hypertensive chronic kidney disease with stage 5 chronic kidney disease or end stage renal disease; N18.6 End stage renal disease

== ENCOUNTER 2016-12-24 13:02 | Emergency (ER) | payer OTHER ==
[~2016-12-24] VITALS: Ht 182.9 cm; Wt 82.6 kg
[~2016-12-24 13:02] MED LIST changes: -ACYC1CAP8 PO; +AZIT500I9 IV; +CEFE2INJ2 IV; -CEPH500C PO; +LEVETIRACETAM IV 1,000 MG in DEXTROSE 5% 100ML 100 ML IV STA; -MYCO250C26 PO; -NIFE30TA83 PO; +RAPID SEQUENCE INDUCTION BAG ONE; +SODIUM CHLORIDE 0.9% 1000ML 1,000 ML IV SCH; -SULF1TAB92 PO
[2016-12-24 13:07] VITALS: Ht 182.9 cm; Wt 82.6 kg
[2016-12-24] MEDS ORDERED: VECURONIUM BROMIDE 10 MG VIAL IV STA (13:10)
[2016-12-24] MEDS ORDERED: ETOMIDATE 2 MG/ML 20 ML VIAL IV STA (13:10)
[2016-12-24] MEDS ORDERED: PROPOFOL IV EMULSION 10 MG/ML 100 ML VIAL IV STA (13:10)
[2016-12-24] MEDS ORDERED: SUCCINYLCHOLINE CHLORIDE 20 MG/ML 10 ML VIAL IV STA (13:10)
[2016-12-24] MEDS ORDERED: TACR5CAP PO (13:11)
[2016-12-24] MEDS ORDERED: NIFE30TA83 PO (13:11)
[2016-12-24] MEDS ORDERED: PANT40TA PO (13:11)
[2016-12-24] MEDS ORDERED: TAMS0.4C38 PO (13:11)
[2016-12-24] MEDS ORDERED: SODIUM CHLORIDE 0.9% 1000ML 1,000 ML IV STA ×2 (13:17)
[2016-12-24] MEDS ORDERED: SODIUM CHLORIDE 0.9% 500ML 500 ML IV STA (13:18)
[2016-12-24] MEDS ORDERED: INSULIN IV INFUSION PROTOCOL STA (13:19)
[2016-12-24 13:23] LABS: BASO % 0.2 %; BASO ABS # 0.01 K/uL (0-0.2); COMPLETE YES; EOS % 0.3 %; HEMATOCRIT 42.9 % (42-52); IG% 0.8 %; LYMPH % 11.1 %; LYMPH ABS # 0.73 K/uL (1.2-3.4); MEAN CELL VOLUME 101.4 fL (80-100); MEAN CORPUSCULAR HEMOGLOBIN 32.4 pg (25-34); MEAN CORPUSCULAR HGB CONC 31.9 g/dl (32-36); MEAN PLATELET VOLUME 11.5 fL (7.4-10.4); MONO % 13.6 %; PLATELET COUNT 198 K/uL (130-400); RED BLOOD COUNT 4.23 M/uL (4.7-6.1)
--- NOTE | 2016-12-24 13:23 | EMERGENCY ROOM VISIT NOTE ---
History Report prepared by Katherine: Any Rodriguez Under the Supervision of: Dr. Gavin Bearden M.D. First contact with patient: 12:44 Chief Complaint: UNRESPONSIVE Stated Complaint: ALTERED MENTAL STATUS History of Present Illness The patient is a 61 year old male who presents to the Emergency Room via ALS with complaints of seizures like activity starting [employer]ER. HPI limited due to AMS. According to EMS personal the patient has been having flu like symptoms for the past 3 days and today had a migraine, nausea, vomiting and dizziness along with today the patient fell and hit his head today. The EMS personal state that the patient was last seen normal at 11:30 am, 1.5 hour [employer]. EMS state that the patient throughout route was mostly flaccid but intermittently would move his extremities. They state that the denies any history of seizure like activity for the patient. EMS state that when arriving at the ED the patient started seizing and had Ativan. They state the patient had a kidney transplant and has since not received any dialysis but in November 2016 he was seen to have an elevated white count. 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 Review of Systems HPI limited due to AMS. Past Medical & Surgical Medical Problems: (1) Acute kidney injury (2) Diabetes (3) DKA (diabetic ketoacidoses) (4) End stage renal disease (5) Hypertension Surgical Problems: (1) Kidney transplant recipient Family History Diabetes mellitus Heart disease Hypertension Lung disease Social History Smoking Status: Former Smoker Alcohol Use: none Housing Status: lives alone Occupation Status: retired Current/Historical Medications Scheduled Aspirin (Aspirin 81 Low Dose), 81 MG PO QAM Atorvastatin (Lipitor), 40 MG PO QAM Citalopram (Citalopram Hydrobromide), 40 MG PO QAM Clopidogrel (Plavix), 75 MG PO QAM Docusate Sodium (Docusate Sodium), 100 MG PO BID Nifedipine Ext Rel (Procardia Xl Ext Rel), 30 MG PO DAILY Pantoprazole (Protonix), 40 MG PO DAILY Tacrolimus (Prograf), 3 MG PO Q12 Tacrolimus (Prograf), 5 MG PO Q12 Tamsulosin Hcl (Flomax), 0.4 MG PO DAILY Allergies Coded Allergies: Morphine (Verified Allergy, Unknown, NAUSEA, 12/24/16) Zolpidem (Verified Allergy, Unknown, UNKNOWN, 12/24/16) Physical Exam Vital Signs Date Time Temp Pulse Resp B/P Pulse Ox O2 Delivery O2 Flow Rate FiO2 12/24/16 15:55 95 24 126/78 100 12/24/16 15:44 95 24 126/78 100 Mechanical Ventilator 100 12/24/16 15:27 96 24 135/74 100 Mechanical Ventilator 100 12/24/16 15:17 96 24 146/78 100 Mechanical Ventilator 100 12/24/16 15:00 94 24 134/70 100 Mechanical Ventilator 100 12/24/16 14:52 95 24 137/77 100 Mechanical Ventilator 100 12/24/16 14:47 92 24 163/83 100 Mechanical Ventilator 100 12/24/16 14:39 95 24 165/86 100 Room Air 12/24/16 14:12 91 24 170/91 100 Mechanical Ventilator 100 12/24/16 14:07 100 12/24/16 14:06 98 24 201/96 100 Mechanical Ventilator 100 12/24/16 13:53 103 24 209/109 100 Mechanical Ventilator 100 12/24/16 13:49 103 24 214/112 12/24/16 13:35 105 24 161/89 100 Mechanical Ventilator 100 12/24/16 13:08 104 12/24/16 13:07 105 12 166/77 99 Non-Rebreather Physical Exam GENERAL: Patient is obtunded HEAD: Normocephalic atraumatic EYES: Pupils are pinpoint and fixed. OROPHARYNX mucous membranes are moist no exudates present no erythema or edema present NECK: Supple no nuchal rigidity CHEST: Good equal expansion LUNGS: Patient has snoring respiration. CARDIAC: Normal S1 and S2 ABDOMEN: Soft nontender no guarding BACK: No CVA tenderness EXTREMITIES: Not moving any of the four extremities. NEURO: Patient is not following commands or answering questions appropriately. Medical Decision & Procedures ER Provider Diagnostic Interpretation: X-ray results as stated below per interpretation by me and the radiologist: SINGLE VIEW CHEST CLINICAL HISTORY: Strokelike symptoms. Intubation. FINDINGS: An AP, portable, supine chest radiograph is compared to study dated 11/18/2016. The examination is degraded by portable technique and patient rotation. An endotracheal tube has been placed. The tip of the catheter projects 4.5 cm above the annie. The cardiomediastinal silhouette is unremarkable. The lungs and pleural spaces are clear. No pneumothorax is seen. The bony thorax is grossly intact. IMPRESSION: 1. An endotracheal tube has been placed. The tip of the catheter projects approximately 4.5 cm above the annie. 2. The lungs are clear. Electronically signed by: Blas Corley M.D. 12/24/2016 1:35 PM Dictated Date/Time: 12/24/2016 1:[address] results as stated below per my review and radiologist interpretation: CT SCAN OF THE BRAIN WITHOUT IV CONTRAST CLINICAL HISTORY: Change in mental status. COMPARISON STUDY: No priors. TECHNIQUE: Unenhanced axial CT scan of the brain is performed from the vertex to the skull base. Automated dose control exposure was utilized. CT DOSE: 884.08 mGy.cm FINDINGS: Brain parenchyma: The brain parenchyma is normal in appearance. There is no hemorrhage, mass effect, or evidence of acute territorial ischemia by CT criteria. Chadwick-white matter is preserved. No extra-axial fluid collection is seen. Ventricles, sulci, cisterns: Normal in configuration. Intracranial vasculature: There is atherosclerotic calcification of the cavernous carotid and vertebral arteries. Calvarium: Unremarkable. Sinuses and mastoids: The visualized paranasal sinuses are clear. The mastoid air cells are well pneumatized. Orbits: The bony orbits are grossly intact. There are bilateral ocular lens implants. IMPRESSION: There is no hemorrhage, mass effect, or evidence of acute territorial ischemia by CT criteria. Electronically signed by: Blas Corley M.D. 12/24/2016 2:08 PM Dictated Date/Time: 12/24/2016 2:05 PM Laboratory Results 12/24/16 13:10 Red Blood Count 4.23, Mean Corpuscular Volume 101.4, Mean Corpuscular Hemoglobin 32.4, Mean Corpuscular Hemoglobin Concent 31.9, Mean Platelet Volume 11.5, Neutrophils (%) (Auto) 74.0, Lymphocytes (%) (Auto) 11.1, Monocytes (%) ( Auto) 13.6, Eosinophils (%) (Auto) 0.3, Basophils (%) (Auto) 0.2, Neutrophils # (Auto) 4.89, Lymphocytes # (Auto) 0.73, Monocytes # (Auto) 0.90, Eosinophils # ( Auto) 0.02, Basophils # (Auto) 0.01 12/24/16 13:10 Test 12/24/16 13:10 12/24/16 13:14 12/24/16 13:17 12/24/16 13:57 White Blood Count 6.60 K/uL (4.8-10.8) Red Blood Count 4.23 M/uL (4.7-6.1) Hemoglobin 13.7 g/dL (14.0-18.0) Hematocrit 42.9 % (42-52) Mean Corpuscular Volume 101.4 fL (80-100) Mean Corpuscular Hemoglobin 32.4 pg (25-34) Mean Corpuscular Hemoglobin Concent 31.9 g/dl (32-36) Platelet Count 198 K/uL (130-400) Mean Platelet Volume 11.5 fL (7.4-10.4) Neutrophils (%) (Auto) 74.0 % Lymphocytes (%) (Auto) 11.1 % Monocytes (%) (Auto) 13.6 % Eosinophils (%) (Auto) 0.3 % Basophils (%) (Auto) 0.2 % Neutrophils # (Auto) 4.89 K/uL (1.4-6.5) Lymphocytes # (Auto) 0.73 K/uL (1.2-3.4) Monocytes # (Auto) 0.90 K/uL (0.11-0.59) Eosinophils # (Auto) 0.02 K/uL (0-0.5) Basophils # (Auto) 0.01 K/uL (0-0.2) RDW Standard Deviation 51.9 fL (36.4-46.3) RDW Coefficient of Variation 14.0 % (11.5-14.5) Immature Granulocyte % (Auto) 0.8 % Immature Granulocyte # (Auto) 0.05 K/uL (0.00-0.02) Prothrombin Time 12.0 SECONDS (9.0-12.0) Prothromb Time International Ratio 1.1 (0.9-1.1) Activated Partial Thromboplast Time 24.0 SECONDS (21.0-31.0) Partial Thromboplastin Ratio 0.9 Est Creatinine Clear Calc Drug Dose 31.1 ml/min Estimated GFR () 28.0 Estimated GFR (Non- 24.2 BUN/Creatinine Ratio 15.9 (10-20) Bedside Glucose 364 mg/dl (70-99) Calcium Level 9.9 mg/dl (8.5-10.1) Total Creatine Kinase 75 U/L (39-308) Creatine Kinase MB 1.2 ng/ml (0.5-3.6) Creatine Kinase MB Ratio 1.6 (0-3.0) Troponin I < 0.015 ng/ml (0-0.045) Beta-Hydroxybutyric Acid 11.49 mg/dL (0.2-2.81) Bedside Hemoglobin 13.9 g/dl (14.0-18.0) Bedside Hematocrit 41 % (42-52) Bedside Sodium 141 mEq/L (135-144) Bedside Potassium 4.1 mEq/L (3.3-5.0) Bedside Chloride 107 mEq/L (101-112) Bedside Total CO2 14 mEq/l (24-31) Anion Gap 25.0 mmol/L (16-25) Bedside Blood Urea Nitrogen 41 mg/dl (7-18) Bedside Creatinine 2.0 mg/dl (0.6-1.3) Bedside Glucose (other) 414 mg/dl (70-99) Bedside Ionized Calcium (Sandeep) 1.34 mmol/l (1.12-1.32) Bedside Lactic Acid Venous 13.87 mmol/L (0.90-1.70) Arterial Blood pH 7.28 (7.35-7.45) Arterial Blood Partial Pressure CO2 39 mmHg (35-46) Arterial Blood Partial Pressure O2 83 mm/Hg (80-95) Arterial Blood HCO3 18 mmol/L (19-24) Arterial Blood Oxygen Saturation 95.2 % (90-95) Arterial Blood Base Excess -7.9 mEq/L (-9-1.8) Arterial Blood Gas Delivery 100% Gibran Test POS (POS) Test 12/24/16 14:15 12/24/16 14:30 Urine Color YELLOW Urine Appearance CLEAR (CLEAR) Urine pH 6.5 (4.5-7.5) Urine Specific [place] 1.017 (1.000-1.030) Urine Protein 1+ (NEG) Urine Glucose (UA) 2+ (NEG) Urine Ketones TRACE (NEG) Urine Occult Blood NEG (NEG) Urine Nitrite NEG (NEG) Urine Bilirubin NEG (NEG) Urine Urobilinogen NEG (NEG) Urine Leukocyte Esterase NEG (NEG) Urine WBC (Auto) 0 /hpf (0-5) Urine RBC (Auto) 0-4 /hpf (0-4) Urine Hyaline Casts (Auto) 0 /lpf (0-5) Urine Epithelial Cells (Auto) 0-5 /lpf (0-5) Urine Bacteria (Auto) NEG (NEG) Urine Opiates Screen NEG (NEG) Urine Methadone, Qualitative NEG (NEG) Urine Barbiturates NEG (NEG) Urine Phencyclidine (PCP) Level NEG (NEG) Ur Amphetamine/Methamphetamine NEG (NEG) MDMA (Ecstasy) Screen NEG (NEG) Urine Benzodiazepines Screen NEG (NEG) Urine Cocaine Metabolite NEG (NEG) Urine Marijuana (THC) NEG (NEG) Labs reviewed by ED physician. Medications Administered Medications (Trade) Dose Ordered Sig/Jose Route Start Time Stop Time Status Last Admin Dose Admin Levetiracetam/ Dextrose (Keppra Iv/D5 100ml) 110 ml @ 440 mls/hr ONE STAT IV 12/24/16 13:00 12/24/16 13:14 DC 12/24/16 13:14 440 MLS/HR Miscellaneous (Rapid Sequence Induction Bag) 1 ea STK-MED ONCE N/A 12/24/16 13:02 12/24/16 13:05 DC 12/24/16 13:05 1 EA Vecuronium [place] Roy (Vecuronium [place] Inj) 10 mg NOW STAT IV 12/24/16 13:10 12/24/16 13:12 DC 12/24/16 13:16 10 MG Etomidate (Amidate Inj) 20 mg 1310 STAT IV 12/24/16 13:10 12/24/16 13:12 DC 12/24/16 13:13 20 MG Succinylcholine Chloride (Quelicin Inj) 200 mg NOW STAT IV 12/24/16 13:10 12/24/16 13:12 DC 12/24/16 13:13 200 MG Propofol 1 dose 1 dose UD STAT IV 12/24/16 13:10 12/24/16 13:12 DC 12/24/16 13:29 1 DOSE Sodium Chloride 1,000 ml @ 999 mls/hr Q1H1M STAT IV 12/24/16 13:17 12/24/16 14:17 DC 12/24/16 14:42 999 MLS/HR Sodium Chloride 1,000 ml @ 999 mls/hr Q1H1M STAT IV 12/24/16 13:17 12/24/16 14:17 DC 12/24/16 13:30 999 MLS/HR Sodium Chloride (Nss 500ml) 500 ml @ 999 mls/hr Q31M STAT IV 12/24/16 13:18 12/24/16 13:48 DC 12/24/16 13:30 999 MLS/HR Labetalol HCl (Normodyne IV) 10 mg NOW STAT IV 12/24/16 13:50 12/24/16 13:51 DC 12/24/16 14:08 10 MG Labetalol HCl 10 mg 10 mg Q10M STAT IV 12/24/16 13:50 12/24/16 13:51 DC 12/24/16 14:03 10 MG Nicardipine HCl/ Sodium Chloride (Cardene Iv/Nss 250ml) 250 ml @ 0 mls/hr Q0M STAT IV 12/24/16 13:50 12/24/16 13:51 DC 12/24/16 14:02 5 MLS/HR Insulin Human Regular (novoLIN-R U-100 PER UNIT) 10 units NOW STAT IV 12/24/16 14:11 12/24/16 14:13 DC 12/24/16 14:22 10 UNITS Propofol (Diprivan Iv Emulsion 100ml Vial) 1 dose STK-MED ONCE IV 12/24/16 15:26 12/24/16 15:30 DC 12/24/16 15:30 1 DOSE Procedure Endotracheal Intubation Indication AMS, seizure. The patient was on 100% oxygen via NRB prior to the procedure. Suction, airway equipment, RSI drugs, respiratory equipment, and appropriate personnel were prepared prior to the initiation of the procedure. A time out was taken. Induction was performed with 20mg Etomidate and 200 mg Succinylcholine Chloride . After observing the clinical benefit of the medications, the airway was easily visualized utilizing a mac blade. A 7.5 size ETT tube was placed atraumatically to 22 cm using standard technique. The cuff inflated without signs of malfunction. There were bilateral breath sounds, positive colormetric change, no gastric sounds, a good capnography waveform, and post procedure pulse oximetry was 100%. Post intubation sedation and paralysis was administered using 10mg Vecuronium [place] Roy and Propofol. There were no complications. ECG Indication: altered mental status Rate (beats per minute): 103 Rhythm: sinus tachycardia Findings: no acute ischemic change, no ectopy ED Course 1244: Ordered Sodium Chloride 1,000 ml @ 50 mls/hr IV 1259: Past medical records reviewed. The patient was evaluated in room A1. A complete history and physical examination was performed. 1300: Ordered Levetiracetam 1.000 mg/Dextrose 110 ml @ 440 mls/hr IV 1310: Ordered Propofol 1 dose IV, Succinylcholine Chloride 200 mg IV, Etomidate 20 mg IV, Vecuronium [place] 10 mg IV. 1317: Ordered Sodium Chloride 1,000 ml @ 999 mls/hr IV. 1318: Ordered Sodium Chloride 500 ml @ 999 mls/hr IV. 1319: Ordered Insulin Human Regular 1 ea IV 1330: Ordered Insulin Protocol Severe Stress 1 ea N/A 1330: Ordered Insulin Protocol DKA Goal Range 1 ea N/a 1411: Ordered Insulin Human Regular 10 units IV. 1355: I discussed the case with Dr. Villanueva General Surgery [facility]. He agreed to accept the patient for transfer at [facility] for further treatment and care. 1535: The flight crew arrived to transport the patient to [facility] 1555: The patient is leaving to be transported by helicopter to [facility]. 1900: Insulin Aspart Sliding Scale SC. Medical Decision Differential diagnosis: Etiologies such as metabolic, infection, hypo/hyperglycemia, electrolyte abnormalities, cardiac sources, intracerebral event, toxicologic, neurologic, as well as others were entertained. This is a 61-year-old male who presents emergency department obtunded and seizing. The patient has no history of seizures in the past. He does have a history of kidney transplant as well as insulin-dependent diabetes. Per the patient's he has not been feeling well over the past several days and has not been able to keep down any of his medications as he just vomits it up. Due to the nature of the patient's seizing as well as Ativan being used, to protect the patient's airway he was intubated as above. He was started on Keppra IV. The patient was then sent for CAT scan of the head. The wet read on this was concerning for a subarachnoid hemorrhage however radiology feels this is a normal CAT scan of the head. The patient was recently just discharged from [facility] as that is where the patient had his kidney transplant performed. His creatinine is elevated. Due to these findings the patient was discussed with [facility]. I also discussed my findings with the patient's who was at home via phone. She agrees with the transfer to [facility] and knows the risks of a helicopter crash along with decompensation en route. The patient will be continued on propofol drip as well as saline. was in agreement with the treatment plan. Consults Time Called: 1350 Consulting Physician: Dr. Villanueva General Surgery [facility] Returned Call: 1356 I discussed the case with Dr. Villanueva General Surgery [facility]. He agreed to accept the patient for transfer at [facility] for further treatment and care. Impression Primary Impression: Seizure Additional Impressions: DKA (diabetic ketoacidoses) Acute renal failure Critical Care I have personally spent greater than 90 minutes of critical care time in the direct management of this patient. This includes bedside care, interpretation of diagnostic studies, and testing, discussion with consultants, patient, and family members, and other required patient management activities. This 90 minutes is in excess of all separately billable procedures. Scribe Attestation The scribe's documentation has been prepared under my direction and personally reviewed by me in its entirety. I confirm that the note above accurately reflects all work, treatment, procedures, and medical decision making performed by me. Departure Information Dispostion Transfer Acute Care Facility ([facility] ) Referrals Charles Chaudhari M.D. (PCP) Patient Instructions My [facility] Problem Qualifiers Additional Impressions: DKA (diabetic ketoacidoses) Diabetes mellitus type: type 1 Diabetes mellitus complication detail: with coma Qualified Codes: E10.11 - Type 1 diabetes mellitus with ketoacidosis with coma Acute renal failure Acute renal failure type: unspecified Qualified Codes: N17.9 - Acute kidney failure, unspecified
[2016-12-24 13:28] LABS: ISTAT HEMOGLOBIN 13.9 g/dl (14.0-18.0); ISTAT IONIZED CALCIUM 1.34 mmol/l (1.12-1.32)
[2016-12-24 13:30] LABS: INR 1.1 (0.9-1.1); PARTIAL THROMBOPLASTIN RATIO 0.9
[2016-12-24] MEDS ORDERED: SEVERE STRESS LEVEL ONE (13:30)
[2016-12-24] MEDS ORDERED: DKA GOAL RANGE 150-250 mg/dl 1 EA ONE (13:30)
[2016-12-24] MEDS ORDERED: INSULIN IV INFUSION PROTOCOL SCH (13:36)
--- NOTE | 2016-12-24 13:36 | DIAGNOSTIC IMAGING REPORT ---
SINGLE VIEW CHEST CLINICAL HISTORY: Strokelike symptoms. Intubation. FINDINGS: An AP, portable, supine chest radiograph is compared to study dated 11/18/2016. The examination is degraded by portable technique and patient rotation. An endotracheal tube has been placed. The tip of the catheter projects 4.5 cm above the annie. The cardiomediastinal silhouette is unremarkable. The lungs and pleural spaces are clear. No pneumothorax is seen. The bony thorax is grossly intact. IMPRESSION: 1. An endotracheal tube has been placed. The tip of the catheter projects approximately 4.5 cm above the annie. 2. The lungs are clear. Electronically signed by: Blas Corley M.D. 12/24/2016 1:35 PM Dictated Date/Time: 12/24/2016 1:32 PM
[2016-12-24 13:43] LABS: BLOOD UREA NITROGEN 43 mg/dl (7-18); BUN/CREATININE RATIO 15.9 (10-20); CALCIUM 9.9 mg/dl (8.5-10.1); CARBON DIOXIDE 14 mmol/L (21-32); CHLORIDE 106 mmol/L (98-107); GLUCOSE 410 mg/dl (70-99); SODIUM 140 mmol/L (136-145)
[2016-12-24 13:48] LABS: CKMB/CK RATIO 1.6 (0-3.0)
[2016-12-24] MEDS ORDERED: NiCARDipine IV 25 MG in SODIUM CHLORIDE 0.9% 250ML 240 ML IV STA (13:50)
[2016-12-24] MEDS ORDERED: LABETALOL HCL IV 5 MG/ML 20ML IV STA ×2 (13:50)
[2016-12-24 13:54] LABS: BETA-HYDROXYBUTYRATE 11.49 mg/dL (0.2-2.81)
[2016-12-24 14:08] LABS: ARTERIAL BLD GAS O2 SATURATION 95.2 % (90-95); ARTERIAL BLOOD GAS BASE EXCESS -7.9 mEq/L (-9-1.8); ARTERIAL BLOOD GAS HCO3 18 mmol/L (19-24); ARTERIAL BLOOD GAS PO2 83 mm/Hg (80-95); ARTERIAL BLOOD GAS pH 7.28 (7.35-7.45)
--- NOTE | 2016-12-24 14:09 | DIAGNOSTIC IMAGING REPORT ---
CT SCAN OF THE BRAIN WITHOUT IV CONTRAST CLINICAL HISTORY: Change in mental status. COMPARISON STUDY: No priors. TECHNIQUE: Unenhanced axial CT scan of the brain is performed from the vertex to the skull base. Automated dose control exposure was utilized. CT DOSE: 884.08 mGy.cm FINDINGS: Brain parenchyma: The brain parenchyma is normal in appearance. There is no hemorrhage, mass effect, or evidence of acute territorial ischemia by CT criteria. Chadwick-white matter is preserved. No extra-axial fluid collection is seen. Ventricles, sulci, cisterns: Normal in configuration. Intracranial vasculature: There is atherosclerotic calcification of the cavernous carotid and vertebral arteries. Calvarium: Unremarkable. Sinuses and mastoids: The visualized paranasal sinuses are clear. The mastoid air cells are well pneumatized. Orbits: The bony orbits are grossly intact. There are bilateral ocular lens implants. IMPRESSION: There is no hemorrhage, mass effect, or evidence of acute territorial ischemia by CT criteria. Electronically signed by: Blsa Corley M.D. 12/24/2016 2:08 PM Dictated Date/Time: 12/24/2016 2:05 PM
[2016-12-24] MEDS ORDERED: NovoLIN-R INSULIN PER UNIT CHARGE IV STA (14:11)
[2016-12-24 14:12] LABS: ALLEN TEST POS (POS); O2 ADMINISTRATION 100%
[2016-12-24 15:03] LABS: BENZODIAZEPINE, URINE NEG (NEG); COCAINE,URINE NEG (NEG); PHENCYCLIDINE, URINE NEG (NEG)
[2016-12-24 15:23] LABS: MANUAL MICROSCOPIC REQUIRED? NO; REVIEW REQ? NO; URINE APPEARANCE CLEAR (CLEAR); URINE BILIRUBIN NEG (NEG); URINE COLOR YELLOW; URINE EPITHELIAL CELL AUTO 0-5 /lpf (0-5); URINE NITRITE NEG (NEG); URINE PH 6.5 (4.5-7.5); URINE SPECIFIC GRAVITY 1.017 (1.000-1.030); UROBILINOGEN NEG (NEG); ZZURINE CULT IF INDIC CATH NO
[2016-12-24] MEDS ORDERED: PROPOFOL IV EMULSION 10 MG/ML 100 ML VIAL IV ONE (15:26)
[2016-12-24 15:55] VITALS: BP 126/78; PULSE 95; O2SAT 100
[2016-12-24] MEDS ORDERED: INSULIN ASPART 100 UNITS/ML 3 ML PEN SC SCH (19:00)
[2016-12-28 08:24] LABS: FK506 TACROLIMUS HIGHLY SENS 11.1 MCG/L (5-20)
[2017-01-23] MEDS ORDERED: MYCO250C26 PO (16:12)
[2017-01-23] MEDS ORDERED: SPT/ PO (16:12)
[2017-01-23] MEDS ORDERED: ASPI81TA28 PO (16:12)
[2017-01-23] MEDS ORDERED: ACET-1311 PO (16:12)
[2017-01-23] MEDS ORDERED: SUMA100T16 PO (16:12)
[2017-01-23] MEDS ORDERED: CARV3.122 PO (16:12)
[2017-01-23] MEDS ORDERED: MAGN400T6 PO (16:12)
[2017-01-23] MEDS ORDERED: TACR1CAP PO ×2 (16:12)
[2017-01-23] MEDS ORDERED: CLOP1TAB15 PO (17:00)
[2017-01-23] MEDS ORDERED: ATOR-24 PO (17:00)
[2017-01-23] MEDS ORDERED: CLX40 PO (17:00)
[2017-01-30] MEDS ORDERED: INSPMPNVLG (09:24)
[2017-01-30] MEDS ORDERED: CRG25 PEG (15:16)
[2017-01-30] MEDS ORDERED: PANT40TA PO (15:45)
[2017-01-30] MEDS ORDERED: AMLO2.5T PO (15:45)
[2017-01-30] MEDS ORDERED: CRG25 PO (17:25)
== END 2016-12-24 14:55 | disposition short-term general hospital (02) ==
LOC: C.ED 13:02
DX: R56.9 Unspecified convulsions (principal); E10.11 Type 1 diabetes mellitus with ketoacidosis with coma; N17.9 Acute kidney failure, unspecified; I10 Essential (primary) hypertension; N18.6 End stage renal disease; Z94.0 Kidney transplant status; Z87.891 Personal history of nicotine dependence

== ENCOUNTER → 2017-01-11 | Outpatient (CLI) | payer OTHER ==
[~2017-01-11] MED LIST changes: +AMLO2.5T PO; +ASPI81TA28 PO; +ATOR-24 PO; -AZIT500I9 IV; -BISA10SU5 RE; +CARV25TA PO; +CARV3.122 PO; -CEFE2INJ2 IV; +CLOP1TAB15 PO; +CLX40 PO; +CRG25 PEG; +CRG25 PO; -FLUD0.1T10 PO; +INSPMPNVLG; -LEVETIRACETAM IV 1,000 MG in DEXTROSE 5% 100ML 100 ML IV STA; +MULT-405 PO; +MYCO250C26 PO; +NIFE30TA83 PO; -OXYC1TAB3 PO; +PANT40TA PO; -RAPID SEQUENCE INDUCTION BAG ONE; -SODIUM CHLORIDE 0.9% 1000ML 1,000 ML IV SCH; +SPT/ PO; +SUMA100T16 PO; +TACR5CAP PO; +TAMS0.4C38 PO
[2017-01-11 17:31] LABS: BASO % 0.2 %; BASO ABS # 0.02 K/uL (0-0.2); COMPLETE YES; EOS % 1.1 %; HEMATOCRIT 36.3 % (42-52); IG% 0.1 %; LYMPH % 6.8 %; LYMPH ABS # 0.64 K/uL (1.2-3.4); MEAN CELL VOLUME 97.6 fL (80-100); MEAN CORPUSCULAR HEMOGLOBIN 32.5 pg (25-34); MEAN CORPUSCULAR HGB CONC 33.3 g/dl (32-36); MEAN PLATELET VOLUME 10.9 fL (7.4-10.4); MONO % 3.2 %; NEUT % 88.6 %; PLATELET COUNT 406 K/uL (130-400); RED BLOOD COUNT 3.72 M/uL (4.7-6.1); WHITE BLOOD COUNT 9.43 K/uL (4.8-10.8)
[2017-01-11 17:58] LABS: URINE APPEARANCE CLEAR (CLEAR); URINE BILIRUBIN NEG (NEG); URINE COLOR YELLOW; URINE NITRITE NEG (NEG); URINE PH 6.5 (4.5-7.5); UROBILINOGEN NEG (NEG)
[2017-01-11 18:00] LABS: MANUAL MICROSCOPIC REQUIRED? NO; REVIEW REQ? NO
[2017-01-11 18:51] LABS: BLOOD UREA NITROGEN 39 mg/dl (7-18); BUN/CREATININE RATIO 19.3 (10-20); CALCIUM 9.7 mg/dl (8.5-10.1); CARBON DIOXIDE 27 mmol/L (21-32); CHLORIDE 103 mmol/L (98-107); GLUCOSE 376 mg/dl (70-99); MAGNESIUM 2.4 mg/dl (1.8-2.4); PHOSPHORUS 2.8 mg/dl (2.5-4.9); POTASSIUM 5.3 mmol/L (3.5-5.1); SODIUM 136 mmol/L (136-145); URIC ACID 5.4 mg/dl (2.6-7.2)
[2017-01-14 07:59] LABS: FK506 TACROLIMUS HIGHLY SENS 6.9 MCG/L (5-20)
== END | disposition home or self-care (01) ==
LOC: C.LABPVFM 11:39
PROVIDERS: ATTEND Internal Medicine Nephrology
DX: Z94.0 Kidney transplant status (principal); D89.9 Disorder involving the immune mechanism, unspecified; T86.90 Unspecified complication of unspecified transplanted organ and tissue; E83.40 Disorders of magnesium metabolism, unspecified; Z79.899 Other long term (current) drug therapy; Y83.0 Surgical operation with transplant of whole organ as the cause of abnormal reaction of the patient, or of later complication, without mention of misadventure at the time of the procedure

== ENCOUNTER → 2017-01-20 | Outpatient (CLI) | payer OTHER ==
[2017-01-20 17:40] LABS: CHOLESTEROL/HDL RATIO 2.2; PROSTATE SPECIFIC ANTIGEN 1.92 ng/ml (0.000-4.000)
[2017-01-21 05:57] LABS: ESTIMATED AVERAGE GLUCOSE 223 mg/dl; HA1C FLAG Normal (Normal)
== END | disposition home or self-care (01) ==
LOC: C.LABPVFM 11:11
PROVIDERS: ATTEND Neuromusculoskeletal Medicine & OMM
DX: Z00.00 Encounter for general adult medical examination without abnormal findings (principal)

== ENCOUNTER 2017-04-11 21:38 | Emergency (ER) | payer OTHER ==
[~2017-04-11] VITALS: Ht 177.8 cm; Wt 88.4 kg
[~2017-04-11 21:38] MED LIST changes: -AMLO2.5T PO; -ASPI1CHW12 PO; -CARV25TA PO; -CARV3.122 PO; -CLC100 PO; -CRG25 PEG; -MULT-405 PO; -NIFE30TA83 PO; -SUMA100T16 PO; -TACR5CAP PO; -TAMS0.4C38 PO
[2017-04-11 21:40] VITALS: TEMP 36.3; Ht 177.8 cm; Wt 88.4 kg
[2017-04-11] MEDS ORDERED: PANT40TA PO (22:18)
[2017-04-11] MEDS ORDERED: CARV25TA PO (22:18)
[2017-04-11] MEDS ORDERED: MULT-405 PO (22:18)
[2017-04-11] MEDS ORDERED: AMLO2.5T PO (22:18)
[2017-04-11] MEDS ORDERED: TACR1CAP PO (22:18)
[2017-04-11] MEDS ORDERED: NiCARDipine IV 25 MG in SODIUM CHLORIDE 0.9% 250ML 240 ML IV STA (22:47)
[2017-04-11 23:00] LABS: BASO % 0.2 %; BASO ABS # 0.01 K/uL (0-0.2); COMPLETE YES; EOS % 1.8 %; HEMATOCRIT 39.3 % (42-52); IG% 0.3 %; LYMPH % 8.7 %; LYMPH ABS # 0.58 K/uL (1.2-3.4); MEAN CELL VOLUME 91.6 fL (80-100); MEAN CORPUSCULAR HEMOGLOBIN 30.3 pg (25-34); MEAN CORPUSCULAR HGB CONC 33.1 g/dl (32-36); MEAN PLATELET VOLUME 10.9 fL (7.4-10.4); MONO % 6.8 %; NEUT % 82.2 %; PLATELET COUNT 203 K/uL (130-400); RED BLOOD COUNT 4.29 M/uL (4.7-6.1); WHITE BLOOD COUNT 6.63 K/uL (4.8-10.8)
--- NOTE | 2017-04-11 23:00 | EMERGENCY ROOM VISIT NOTE ---
History Report prepared by Katherine: Brien Reilly Under the Supervision of: Dr. Gavino Delacruz M.D. First contact with patient: 22:42 Chief Complaint: HEADACHE Stated Complaint: CONFUSION, MIGRAINE History of Present Illness The patient is a 61 year old male who presents to the Emergency Room with complaints of a constant headache beginning this evening. The patient's friend states that he was taking his to the doctors when all of a sudden his head started to hurt. She reports the patient could not wait until he got home so he could take some Tylenol. The friend notes the patient did take Tylenol but it did not help. She states his sister called and said he needed to be brought to the ED. The patient denies neck stiffness, neck pain, chest pain, and edema to the legs. The patient records states that the patient is a type 1 Diabetic with an insulin pump. They report he has a history of a renal transplant. The records note that in December he was diagnoses with Press Syndrome with intubation and ICU stay. Source of History: patient, friend Onset: this evening Position: head Quality: ache Timing: constant Associated Symptoms: No neck pain, No chest pain Note: The patient denies neck stiffness and edema to the legs. Review of Systems See HPI for pertinent positives & negatives. A total of 10 systems reviewed and were otherwise negative. Past Medical & Surgical Medical Problems: (1) Accelerated hypertension (2) Acute kidney injury (3) Altered mental status (4) Diabetes (5) DKA (diabetic ketoacidoses) (6) End stage renal disease (7) Hypertension (8) Posterior reversible encephalopathy syndrome (PRES) Surgical Problems: (1) Kidney transplant recipient (2) Renal transplant recipient Family History Diabetes mellitus Heart disease Hypertension Lung disease Social History Smoking Status: Never Smoker Alcohol Use: none Marital Status: Housing Status: lives alone Occupation Status: retired Current/Historical Medications Scheduled Amlodipine (Norvasc), 2.5 MG PO DAILY Aspirin (Aspirin Ec), 81 MG PO DAILY Atorvastatin (Lipitor), 40 MG PO QAM Carvedilol (Coreg), 25 MG PO BID Citalopram (Citalopram Hydrobromide), 40 MG PO QAM Insulin Aspart (novoLOG INSULIN PUMP ), 1 EA N/A UD Magnesium Oxide (Mag-Ox), 400 MG PO BID Multiple Vitamin (Daily Multiple Vitamin), 1 TAB PO DAILY Mycophenolate Mofetil (Cellcept), 500 MG PO BID Pantoprazole (Protonix), 40 MG PO QAM Tacrolimus (Prograf), 7 MG PO AMPM Scheduled PRN Acetaminophen (Tylenol), 650 MG PO Q6H PRN for Mild Pain Allergies Coded Allergies: Morphine (Verified Allergy, Unknown, NAUSEA, 04/11/17) Zolpidem (Verified Allergy, Unknown, UNKNOWN, 04/11/17) Physical Exam Vital Signs Date Time Temp Pulse Resp B/P (MAP) Pulse Ox O2 Delivery O2 Flow Rate FiO2 04/12/17 01:36 101 18 135/76 97 04/12/17 01:01 102 18 139/86 97 Room Air 04/12/17 00:57 100 18 131/74 96 Room Air 04/12/17 00:40 99 18 130/70 100 Room Air 04/12/17 00:20 98 18 127/70 94 Room Air 04/12/17 00:10 98 18 134/79 95 Room Air 04/11/17 23:50 99 18 125/68 97 Room Air 04/11/17 23:40 98 18 125/78 97 Room Air 04/11/17 23:36 102 134/71 04/11/17 23:35 102 18 134/71 97 Room Air 04/11/17 23:25 109 24 143/95 100 Room Air 04/11/17 23:15 101 22 137/77 100 Room Air 04/11/17 23:10 101 26 166/88 100 Room Air 04/11/17 23:02 103 24 200/101 100 Room Air 04/11/17 21:55 97 04/11/17 21:52 99 14 183/87 96 Room Air 04/11/17 21:40 36.3 100 18 174/88 100 Room Air Physical Exam GENERAL: Acute and ill appearing, mild distress, vomiting, covered in vomit but air way is open, Blood pressure is 200/110 HEENT: No acute trauma, normocephalic atraumatic, mucous membranes moist, no nasal congestion, no scleral icterus. NECK: No stridor, no adenopathy, no meningismus, trachea is midline. LUNGS: No dyspnea. Clear to auscultation and equal bilaterally. No wheeze, no rhonchi. HEART: Regular rate and rhythm. No murmurs, rubs, gallops appreciated. ABDOMEN: Soft, nontender, bowel sounds positive, no masses appreciated, no peritonitis. BACK: No midline tenderness, no CVA tenderness EXTREMITIES: Normal motion all extremities, no cyanosis, no edema. NEUROLOGIC: Alert and oriented, no acute motor or sensory deficits, no focal weakness, cranial nerves grossly intact. SKIN: No rash, no jaundice, no diaphoresis. Medical Decision & Procedures ER Provider Diagnostic Interpretation: Radiology results and stated below per my review and radiologist interpretation: Chest X-Ray ONE VIEW: no acute infiltrate or effusion, patch densities bilateral , similar to previous x-ray. CT HEAD: Comparison: 01/23/17 No acute intracranial hemorrhage, transcortical infarction or mass. No acute skull fractures. Visualized paranasal sinuses and mastoid air cells are clear. Radiologist: Grey Belcher MD Study ready at 0018 and initial results transmitted at 0035. Laboratory Results 04/11/17 22:00 Red Blood Count 4.29, Mean Corpuscular Volume 91.6, Mean Corpuscular Hemoglobin 30.3, Mean Corpuscular Hemoglobin Concent 33.1, Mean Platelet Volume 10.9, Neutrophils (%) (Auto) 82.2, Lymphocytes (%) (Auto) 8.7, Monocytes (%) (Auto) 6.8, Eosinophils (%) (Auto) 1.8, Basophils (%) (Auto) 0.2, Neutrophils # (Auto) 5.45, Lymphocytes # (Auto) 0.58, Monocytes # (Auto) 0.45, Eosinophils # (Auto) 0.12, Basophils # (Auto) 0.01 04/11/17 22:00 Test 04/11/17 22:00 04/11/17 22:55 04/11/17 23:00 04/11/17 23:40 White Blood Count 6.63 K/uL (4.8-10.8) Red Blood Count 4.29 M/uL (4.7-6.1) Hemoglobin 13.0 g/dL (14.0-18.0) Hematocrit 39.3 % (42-52) Mean Corpuscular Volume 91.6 fL (80-100) Mean Corpuscular Hemoglobin 30.3 pg (25-34) Mean Corpuscular Hemoglobin Concent 33.1 g/dl (32-36) Platelet Count 203 K/uL (130-400) Mean Platelet Volume 10.9 fL (7.4-10.4) Neutrophils (%) (Auto) 82.2 % Lymphocytes (%) (Auto) 8.7 % Monocytes (%) (Auto) 6.8 % Eosinophils (%) (Auto) 1.8 % Basophils (%) (Auto) 0.2 % Neutrophils # (Auto) 5.45 K/uL (1.4-6.5) Lymphocytes # (Auto) 0.58 K/uL (1.2-3.4) Monocytes # (Auto) 0.45 K/uL (0.11-0.59) Eosinophils # (Auto) 0.12 K/uL (0-0.5) Basophils # (Auto) 0.01 K/uL (0-0.2) RDW Standard Deviation 44.1 fL (36.4-46.3) RDW Coefficient of Variation 13.2 % (11.5-14.5) Immature Granulocyte % (Auto) 0.3 % Immature Granulocyte # (Auto) 0.02 K/uL (0.00-0.02) Prothrombin Time 11.8 SECONDS (9.0-12.0) Prothromb Time International Ratio 1.1 (0.9-1.1) Activated Partial Thromboplast Time 26.6 SECONDS (21.0-31.0) Partial Thromboplastin Ratio 1.0 Estimated GFR () 15.5 Estimated GFR (Non- 13.4 BUN/Creatinine Ratio 11.6 (10-20) Calcium Level 10.4 mg/dl (8.5-10.1) Phosphorus Level 1.2 mg/dl (2.5-4.9) Magnesium Level 2.4 mg/dl (1.8-2.4) Total Bilirubin 0.7 mg/dl (0.2-1) Direct Bilirubin 0.2 mg/dl (0-0.2) Aspartate Amino Transf (AST/SGOT) 15 U/L (15-37) Alanine Aminotransferase (ALT/SGPT) 18 U/L (12-78) Alkaline Phosphatase 119 U/L (45-117) Troponin I < 0.015 ng/ml (0-0.045) Total Protein 8.0 gm/dl (6.4-8.2) Albumin 4.7 gm/dl (3.4-5.0) Bedside Hemoglobin 13.6 g/dl (14.0-18.0) Bedside Hematocrit 40 % (42-52) Bedside Sodium 142 mEq/L (135-144) Bedside Potassium 4.6 mEq/L (3.3-5.0) Bedside Chloride 110 mEq/L (101-112) Bedside Total CO2 18 mEq/l (24-31) Anion Gap 19.0 mmol/L (16-25) Bedside Blood Urea Nitrogen 45 mg/dl (7-18) Bedside Creatinine 4.3 mg/dl (0.6-1.3) Bedside Glucose (other) 111 mg/dl (70-99) Bedside Ionized Calcium (Sandeep) 1.15 mmol/l (1.12-1.32) Bedside Lactic Acid Venous 2.01 mmol/L (0.90-1.70) Venous Blood pH 7.46 (7.36-7.41) Venous Blood Partial Pressure CO2 26 mmHg (38.0-50.0) Venous Blood Partial Pressure O2 52 mmHg Venous Blood HCO3 18 mmol/L Venous Blood Oxygen Saturation 89.2 % Venous Blood Base Excess -4.7 mmol/L Laboratory results as reviewed by me. Medications Administered Medications (Trade) Dose Ordered Sig/Jose Route Start Time Stop Time Status Last Admin Dose Admin Nicardipine HCl 25 mg/Sodium Chloride 250 ml @ 0 mls/hr Q0M STAT IV 04/11/17 22:47 04/11/17 22:48 DC 04/11/17 23:04 5 MLS/HR Lorazepam (Ativan Inj) 0.5 mg NOW STAT IV 04/11/17 23:01 04/11/17 23:02 DC 04/11/17 23:08 0.5 MG Sodium Chloride 1,000 ml @ 999 mls/hr Q1H1M STAT IV 04/11/17 23:01 04/12/17 00:01 DC 04/11/17 23:12 999 MLS/HR Metoprolol Tartrate (Lopressor Iv) 5 mg NOW STAT IV 04/11/17 23:26 04/11/17 23:27 DC 04/11/17 23:36 5 MG Promethazine HCl 12.5 mg/Sodium Chloride 50.5 ml @ 204 mls/hr NOW STAT IV 04/11/17 23:27 04/11/17 23:41 DC 04/11/17 23:40 204 MLS/HR ECG Indication: vomiting Rate (beats per minute): 103 Rhythm: sinus tachycardia Findings: ST depression (non-specific), no ectopy ED Course 2241: The patient was evaluated in room B11B. A complete history and physical exam was performed. 2246: Ordered Nicardipine HCl 25 mg/Sodium Chloride 250 ml @ 0 mls/hr Protocol IV 2250: I asked the nursing staff to administer 2 IVs, a lactic acid, and an I- STAT. 2301: Ordered Sodium Chloride 1000 ml @ 999 mls/hr IV, Ativan Inj 0.5 mg IV 2326: Ordered Lopressor Iv 5 mg IV 2327: Ordered Promethazine HCl 12.5 mg/Sodium Chloride 50.5 ml @ 204 mls/hr IV 2334: I reevaluated the patient, and his blood pressure is improving. He is still vomiting. 2348: I discussed the patient's acute renal failure with the Lace Paper Machine Operator, [facility]. They believe the patient needs to be evaluated by the transplant specialist. 0030: I discussed the patient's case with Dr. Lopez, [facility] Surgery. The patient will be accepted at [facility] Emergency Department for further treatment. 0114: [facility] will be here in 2 minutes to transfer the patient. Medical Decision Differential: Toxicological, Infectious, Stroke, SAH, Trauma, Electrolyte Abnormality, Hypoglycemia, Alcohol Intoxication, Drug Intoxication, Cardiac Abnormality, Sepsis, Meningitis/Encephalitis, Trauma, Excited Delirium, Serotonin Syndrome, Psychiatric, amongst other pathologies entertained. Medication Reconciliation: I attest that I have personally reviewed the patient 's current medication list. 61 yr old medically complex patient with renal transplant last year on cellcept and prograf. Arrives for evaluation of severe headache, ams, and vomiting. Similar to when I saw him 3 months ago when he was here, intubated and eventually diagnosed with PRES. Today again BP is quite elevated and he is vomiting. Small dose ativan/phenergan for vomiting with some improvement. Nicardipine started as this worked well on previous admission when labetalol had issues. Also given Lopressor for some HR control. Further ativan and vomiting better, though still periodic. No Zofran as history of prolonged QTC and moderately prolonged this evening as well. Phos quite low, but more concerning is his acute renal failure. Review of chart reveals that his Cr has rapidly deteriorated over the last week with it being at his baseline, then quickly coming up to 4.4 today. Apparently to have renal biopsy done in next few days for eval of this but with acute issues will need emergent evaluation at transplant center. While on low dose nicardipine, still requiring for BP control. 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 Given the prolonged many hour drive, his previous required intubation when this happened before, and his acuity, I see no other course than air [facility]. Reviewed case with his transplant surgeon who accepts for transfer to [facility] ER (will eventually go from there to [facility]). Lactic mildly bumped thus cultures sent, but without fever, nor leukocytosis nor other clear evidence of infection I feel that holding on abx reasonable. Suspect that lactic and bicarb abnormalities secondary to his acute vomiting/dehydration. Stable when transferred via air to [facility]. Consults Time Called: [phone] Consulting Physician: Lace Paper Machine Operator, [facility] Returned Call: [phone] I discussed the patient's acute renal failure with the Lace Paper Machine Operator, [facility]. They believe the patient needs to be evaluated by the transplant specialist. Additional Consults: Time Called: [phone] Consulted Physician: Dr. Lopez, [facility] Surgery Returned Call: [phone] Additional Comments: I discussed the patient's case with Dr. Lopez, [facility] Surgery. The patient will be accepted at [facility] Emergency Department for further treatment. Impression Primary Impression: PRES (posterior reversible encephalopathy syndrome) Additional Impressions: Intractable vomiting Acute renal failure Critical Care I have personally spent greater than 90 minutes of critical care time in the direct management of this patient. This was a life/limb threatening event. This includes time spent evaluating patient, direct bedside care, chart review, placing orders, interpretation of diagnostic studies, discussion with consultants, patient, and family members, as well as other required patient management activities. This 90 minutes is in excess of all separately billable procedures. Scribe Attestation The scribe's documentation has been prepared under my direction and personally reviewed by me in its entirety. I confirm that the note above accurately reflects all work, treatment, procedures, and medical decision making performed by me. Departure Information Dispostion Transfer Acute Care Facility Referrals Sabiha Waite .Lucia. (PCP) Patient Instructions My [facility] Problem Qualifiers
[2017-04-11] MEDS ORDERED: SODIUM CHLORIDE 0.9% 1000ML 1,000 ML IV STA (23:01)
[2017-04-11] MEDS ORDERED: LORAZEPAM 2 MG/ML 1 ML VIAL IV STA (23:01)
[2017-04-11 23:10] LABS: ALT/SGPT 18 U/L (12-78); BLOOD UREA NITROGEN 51 mg/dl (7-18); BUN/CREATININE RATIO 11.6 (10-20); CALCIUM 10.4 mg/dl (8.5-10.1); CARBON DIOXIDE 18 mmol/L (21-32); CHLORIDE 109 mmol/L (98-107); GLUCOSE 119 mg/dl (70-99); INR 1.1 (0.9-1.1); MAGNESIUM 2.4 mg/dl (1.8-2.4); POTASSIUM 4.6 mmol/L (3.5-5.1); PROTHROMBIN TIME (PATIENT) 11.8 SECONDS (9.0-12.0); SODIUM 141 mmol/L (136-145)
[2017-04-11 23:21] LABS: ISTAT CREATININE 4.3 mg/dl (0.6-1.3); ISTAT HEMOGLOBIN 13.6 g/dl (14.0-18.0); ISTAT IONIZED CALCIUM 1.15 mmol/l (1.12-1.32)
[2017-04-11 23:25] LABS: ALKALINE PHOSPHATASE 119 U/L (45-117); AST/SGOT 15 U/L (15-37); PHOSPHORUS 1.2 mg/dl (2.5-4.9)
[2017-04-11] MEDS ORDERED: METOPROLOL TARTRATE 1 MG/ML VIAL IV STA (23:26)
[2017-04-11] MEDS ORDERED: PROMETHAZINE HCL INJ 12.5 MG in SODIUM CHLORIDE 0.9% 50ML 50 ML IV STA (23:27)
[2017-04-12 00:05] LABS: VEN BLD GAS O2 SATURATION 89.2 %; VEN BLOOD GAS BASE EXCESS -4.7 mmol/L; VENOUS BLOOD GAS PCO2 26 mmHg (38.0-50.0); VENOUS BLOOD GAS PO2 52 mmHg
[2017-04-12 01:36] VITALS: BP 135/76; PULSE 101; O2SAT 97
--- NOTE | 2017-04-12 06:37 | DIAGNOSTIC IMAGING REPORT ---
HEAD CT NONCONTRAST CT DOSE: 1074.96 mGy.cm HISTORY: Mental status change AMS TECHNIQUE: Multiaxial CT images of the head were performed without the use of intravenous contrast. Comparison: 01/23/2017 Findings: The paranasal sinuses and mastoid air cells are clear. The calvarium and skull base are intact. The ventricles and sulci are within normal limits. There is no mass, hematoma, midline shift, or acute infarct. Unchanging high density tentorium. This again is a chronic finding. Impression: No acute intracranial abnormality. Electronically signed by: Noah Mata M.D. 04/12/2017 6:36 AM Dictated Date/Time: 04/12/2017 6:33 AM
--- NOTE | 2017-04-12 07:08 | DIAGNOSTIC IMAGING REPORT ---
SINGLE VIEW CHEST CLINICAL HISTORY: Change in mental status. FINDINGS: 2 AP, portable, upright chest radiographs are compared to study dated 01/25/2017. The examination is degraded by portable technique and patient rotation. The cardiomediastinal silhouette is unremarkable. The lungs and pleural spaces are clear. No pneumothorax is seen. The bony thorax is grossly intact. IMPRESSION: No active disease in the chest. Electronically signed by: Blas Corley M.D. 04/12/2017 7:07 AM Dictated Date/Time: 04/12/2017 7:06 AM
== END 2017-04-12 01:36 | disposition short-term general hospital (02) ==
LOC: C.EDB 21:38
DX: I67.83 Posterior reversible encephalopathy syndrome (principal); N17.9 Acute kidney failure, unspecified; R11.10 Vomiting, unspecified; E11.9 Type 2 diabetes mellitus without complications; I12.0 Hypertensive chronic kidney disease with stage 5 chronic kidney disease or end stage renal disease; N18.6 End stage renal disease; Z94.0 Kidney transplant status; Z79.82 Long term (current) use of aspirin; Z79.4 Long term (current) use of insulin; Z79.899 Other long term (current) drug therapy; Z88.5 Allergy status to narcotic agent; Z88.8 Allergy status to other drugs, medicaments and biological substances; Z88.3 Allergy status to other anti-infective agents; Z82.49 Family history of ischemic heart disease and other diseases of the circulatory system

== ENCOUNTER → 2017-05-01 | Outpatient (CLI) | payer OTHER ==
[~2017-05-01] MED LIST changes: +AMLO2.5T PO; +CARV25TA PO; -CLOP1TAB15 PO; -CRG25 PO; +MULT-405 PO; -SPT/ PO
[2017-05-01 13:23] LABS: ESTIMATED AVERAGE GLUCOSE 186 mg/dl; HA1C FLAG Normal (Normal)
--- NOTE | 2017-05-31 06:05 | CODING QUERY MEDICAL NECESSITY ---
SUPPORTING DIAGNOSIS NEEDED A supporting diagnosis is required for the test/procedure performed on this patient in order for us to be reimbursed by the patient's insurance. Please provide a supporting diagnosis for the following test/procedure listed below next to the test name along with your signature. *If there is no additional diagnosis for this patient that would support the following test/procedure please document that below next to the test/procedure. Test(s)/Procedure(s) that require a supporting diagnosis: DOS 05/01 * Hba1c DIAGNOSIS: Provider Signature: Date: Thank you Xiomy Enriquez Health Information Management Once completed, please kindly fax back to [phone] For questions please call [phone]
== END | disposition home or self-care (01) ==
LOC: C.LABPVFM 09:05
PROVIDERS: ATTEND Nurse Practitioner Family
DX: E10.65 Type 1 diabetes mellitus with hyperglycemia (principal)

== ENCOUNTER → 2017-08-15 | Outpatient (CLI) | payer OTHER ==
[2017-08-15 13:26] LABS: ESTIMATED AVERAGE GLUCOSE 200 mg/dl; HA1C FLAG Normal (Normal)
== END | disposition home or self-care (01) ==
LOC: C.LABPVFM 11:03
PROVIDERS: ATTEND Nurse Practitioner Family
DX: E10.65 Type 1 diabetes mellitus with hyperglycemia (principal)

== ENCOUNTER → 2017-12-04 | Outpatient (CLI) | payer OTHER ==
[2017-12-04 12:38] LABS: HEMOGLOBIN A1C 7.3 % (4.5-5.6)
== END | disposition home or self-care (01) ==
LOC: C.LABPVFM 09:46
PROVIDERS: ATTEND Nurse Practitioner Family
DX: E10.65 Type 1 diabetes mellitus with hyperglycemia (principal)

== ENCOUNTER → 2017-12-12 | Outpatient (CLI) | payer OTHER ==
[~2017-12-12] MED LIST changes: +MYCO500T4 PO; +OSEL12.5 PO
== END | disposition home or self-care (01) ==
LOC: C.LABPVFM 08:22
PROVIDERS: ATTEND Nurse Practitioner Family
DX: E10.65 Type 1 diabetes mellitus with hyperglycemia (principal)

== ENCOUNTER 2017-12-19 12:56 | Emergency (ER) | payer OTHER ==
[~2017-12-19] VITALS: Ht 180.3 cm; Wt 85.4 kg
[~2017-12-19 12:56] MED LIST changes: -MYCO500T4 PO; -OSEL12.5 PO
[2017-12-19 13:04] VITALS: TEMP 37.3; Ht 180.3 cm; Wt 85.4 kg
[2017-12-19 13:14] VITALS: O2SAT 96
[2017-12-19] MEDS ORDERED: SODIUM CHLORIDE 0.9% 1000ML 1,000 ML IV ONE (13:20)
[2017-12-19] MEDS ORDERED: SODIUM CHLORIDE 0.9% 1000ML 1,000 ML IV STA (13:20)
[2017-12-19] MEDS ORDERED: TACR1CAP PO (13:38)
[2017-12-19] MEDS ORDERED: MYCO500T4 PO (13:38)
[2017-12-19 13:41] LABS: HEMATOCRIT 31.7 % (42-52); HEMOGLOBIN 10.1 g/dL (14.0-18.0); MEAN CELL VOLUME 91.1 fL (80-100); MEAN CORPUSCULAR HGB CONC 31.9 g/dl (32-36); MEAN PLATELET VOLUME 10.3 fL (7.4-10.4); PLATELET COUNT 140 K/uL (130-400); RED CELL DISTRIBUTION WIDTH SD 46.2 fL (36.4-46.3); WHITE BLOOD COUNT 2.51 K/uL (4.8-10.8)
--- NOTE | 2017-12-19 13:43 | DIAGNOSTIC IMAGING REPORT ---
CHEST ONE VIEW PORTABLE CLINICAL HISTORY: Atypical chest pain COMPARISON STUDY: 04/11/2017 FINDINGS: The cardiac and mediastinal contours are normal. There is no evidence of focal pulmonary consolidation. There is no evidence of failure. No pleural effusions are visualized.[ IMPRESSION: No active disease in the chest. Electronically signed by: Jono Mario M.D. 12/19/2017 1:42 PM Dictated Date/Time: 12/19/2017 1:42 PM
[2017-12-19 13:57] LABS: ALBUMIN 3.7 gm/dl (3.4-5.0); CALCIUM 9.1 mg/dl (8.5-10.1); CREATININE 2.69 mg/dl (0.60-1.40); POTASSIUM 4.4 mmol/L (3.5-5.1)
[2017-12-19 14:17] LABS: INFLUENZA B ANTIGEN Neg for Influ B (NEG)
[2017-12-19] MEDS ORDERED: OSELTAMIVIR PHOSPHATE 75 MG CAP PO STA (15:33)
[2017-12-19] MEDS ORDERED: OSELTAMIVIR PHOSPHATE SUSP 30 MG/5 ML UDP PO STA (15:38)
[2017-12-19] MEDS ORDERED: OSEL12.5 PO (15:45)
--- NOTE | 2017-12-19 15:45 | EMERGENCY ROOM VISIT NOTE ---
History Report prepared by Katherine: Neymar Flores Under the Supervision of: Dr. Alfred Jensen M.D. First contact with patient: 13:12 Chief Complaint: FLU LIKE SX Stated Complaint: COUGH, VOMITING, NAUSIA, History of Present Illness The patient is a 62 year old male who presents to the Emergency Room with complaints of constant generalized illness beginning two days ago. His symptoms include nausea, vomiting, cough, body aches, low-grade fevers and diarrhea. He also has some chest pain with coughing. The patient has a history of kidney transplant (August 2016) for which he is on anti-rejection medications. He has a history of Type I diabetes (on insulin pump) and notes that his blood sugar has been running low recently. He also complains of abdominal pain, but feels this is due to vomiting. The patient denies urinary symptoms, or headache. He has been hydrating well. He has not eaten much since his symptoms began. The patient was formerly on Plavix until last year. His and brother- in-law currently have a cough. He had a flu shot this year. Source of History: patient Onset: Two days ago Position: other (generalized) Quality: other (illness) Timing: constant Associated Symptoms: + fevers (low-grade), + cough, + chest pain (with coughing), + nausea, + vomiting, + abdominal pain, + diarrhea, No headache, No urinary symptoms Note: Additional symptoms: body aches. Review of Systems See HPI for pertinent positives & negatives. A total of 10 systems reviewed and were otherwise negative. Past Medical & Surgical Medical Problems: (1) Accelerated hypertension (2) Acute kidney injury (3) Altered mental status (4) Diabetes (5) DKA (diabetic ketoacidoses) (6) End stage renal disease (7) Hypertension (8) Posterior reversible encephalopathy syndrome (PRES) Surgical Problems: (1) Kidney transplant recipient (2) Renal transplant recipient Old medical records were reviewed. Nurse's notes were reviewed and I agree with. Family History Diabetes mellitus Heart disease Hypertension Lung disease Social History Smoking Status: Never Smoker Alcohol Use: none Marital Status: Housing Status: lives alone Occupation Status: retired Current/Historical Medications Scheduled Amlodipine (Norvasc), 2.5 MG PO DAILY Aspirin (Aspirin Ec), 81 MG PO DAILY Atorvastatin (Lipitor), 40 MG PO QAM Carvedilol (Coreg), 25 MG PO BID Citalopram (Citalopram Hydrobromide), 40 MG PO QAM Insulin Aspart (novoLOG INSULIN PUMP ), 1 EA N/A UD Magnesium Oxide (Mag-Ox), 400 MG PO DAILY Multiple Vitamin (Daily Multiple Vitamin), 1 TAB PO DAILY Mycophenolate Mofetil (Cellcept), 750 MG PO BID Oseltamivir Phosphate (Tamiflu), 30 MG PO BID Pantoprazole (Protonix), 40 MG PO QAM Tacrolimus (Prograf), 4 MG PO QAM Tacrolimus (Prograf), 3 MG PO QPM Scheduled PRN Acetaminophen (Tylenol), 650 MG PO Q6H PRN for Mild Pain Allergies Coded Allergies: Morphine (Verified Allergy, Unknown, NAUSEA, 12/19/17) Zolpidem (Verified Allergy, Unknown, UNKNOWN, 12/19/17) Physical Exam Vital Signs Date Time Temp Pulse Resp B/P (MAP) Pulse Ox O2 Delivery O2 Flow Rate FiO2 12/19/17 16:07 86 94 12/19/17 16:01 143/75 12/19/17 15:37 87 35 12/19/17 15:32 126/71 12/19/17 15:26 82 19 94 12/19/17 15:01 134/80 12/19/17 14:56 105 29 94 12/19/17 14:33 89 20 142/80 94 Room Air 12/19/17 14:31 142/80 12/19/17 14:26 87 31 93 12/19/17 14:01 127/64 12/19/17 13:56 28 12/19/17 13:31 117/61 12/19/17 13:26 87 23 94 12/19/17 13:14 96 Room Air 12/19/17 13:12 88 12/19/17 13:10 130/71 12/19/17 13:04 37.3 88 18 99/58 95 Room Air Physical Exam General: Non-ill appearing, non-toxic middle-aged male in no acute distress. HEENT: Normal cephalic atraumatic. Pupils are equal round and reactive to light. Extraocular movements are intact. Oropharynx is pink with moist mucous membranes. No swelling of the mouth lips or tongue. Neck: Supple with a midline trachea. No meningeal signs or stiffness, no JVD or bruits. No Stridor. Chest: Clear to auscultation bilaterally. No wheezes or rhonchi. No increased work of breathing. Heart: regular rate and rhythm. Abdomen: Soft nontender, nondistended without rebound guarding or rigidity. Extremities: No cyanosis clubbing or edema. No calf tenderness or assymetry. Old fistula in right arm. Spine/Back. Non tender to palpation. No CVA tenderness Skin: Good turgor without rashes. Neurologic exam: Cranial nerves two through 12 are intact. Motor and sensation are intact and symmetrical throughout. Medical Decision & Procedures ER Provider Diagnostic Interpretation: Radiology results as stated below per my review and radiologist interpretation: CHEST ONE VIEW PORTABLE FINDINGS: The cardiac and mediastinal contours are normal. There is no evidence of focal pulmonary consolidation. There is no evidence of failure. No pleural effusions are visualized.[ IMPRESSION: No active disease in the chest. Electronically signed by: Jono Mario M.D. 12/19/2017 1:42 PM Laboratory Results 12/19/17 13:25 Red Blood Count 3.48, Mean Corpuscular Volume 91.1, Mean Corpuscular Hemoglobin 29.0, Mean Corpuscular Hemoglobin Concent 31.9, Mean Platelet Volume 10.3 12/19/17 13:25 Test 12/19/17 13:25 12/19/17 13:29 12/19/17 13:38 12/19/17 13:40 White Blood Count 2.51 K/uL (4.8-10.8) Red Blood Count 3.48 M/uL (4.7-6.1) Hemoglobin 10.1 g/dL (14.0-18.0) Hematocrit 31.7 % (42-52) Mean Corpuscular Volume 91.1 fL (80-100) Mean Corpuscular Hemoglobin 29.0 pg (25-34) Mean Corpuscular Hemoglobin Concent 31.9 g/dl (32-36) Platelet Count 140 K/uL (130-400) Mean Platelet Volume 10.3 fL (7.4-10.4) RDW Standard Deviation 46.2 fL (36.4-46.3) RDW Coefficient of Variation 14.0 % (11.5-14.5) Neutrophils % (Manual) 80.5 % Lymphocytes % (Manual) 5.3 % Monocytes % (Manual) 11.5 % Eosinophils % (Manual) 0.9 % Basophils % (Manual) 0.9 % (0-2) Metamyelocytes % 0.9 % Neutrophils # (Manual) 2.02 K/uL (1.4-6.5) Total Absolute Neutrophils 2.02 K/uL (1.4-6.5) Lymphocytes # (Manual) 0.13 K/uL (1.2-3.4) Total Absolute Lymphocytes 0.13 K/uL (1.2-3.4) Monocytes # (Manual) 0.29 K/uL (0.11-0.59) Eosinophils # (Manual) 0.02 K/uL (0-0.5) Basophils # (Manual) 0.02 K/uL (0-0.2) Metamyelocytes # 0.02 K/uL (0-0) Hyposegmented Neutrophils 3+ Large Platelets 1+ Giant Platelets 2+ Poikilocytosis PRESENT Anion Gap 9.0 mmol/L (3-11) Est Creatinine Clear Calc Drug Dose 29.9 ml/min Estimated GFR () 27.9 Estimated GFR (Non- 24.1 BUN/Creatinine Ratio 12.7 (10-20) Calcium Level 9.1 mg/dl (8.5-10.1) Total Bilirubin 0.5 mg/dl (0.2-1) Direct Bilirubin 0.1 mg/dl (0-0.2) Aspartate Amino Transf (AST/SGOT) 16 U/L (15-37) Alanine Aminotransferase (ALT/SGPT) 18 U/L (12-78) Alkaline Phosphatase 98 U/L (45-117) Total Protein 7.0 gm/dl (6.4-8.2) Albumin 3.7 gm/dl (3.4-5.0) Lipase 49 U/L (73-393) Bedside Lactic Acid Venous 0.80 mmol/L (0.90-1.70) Bedside Troponin I < 0.030 ng/ml (0-0.045) Influenza Type A Antigen POS for Influ A (NEG) Influenza Type B Antigen Neg for Influ B (NEG) Test 12/19/17 14:05 Urine Color YELLOW Urine Appearance CLEAR (CLEAR) Urine pH 5.0 (4.5-7.5) Urine Specific [place] 1.015 (1.000-1.030) Urine Protein TRACE (NEG) Urine Glucose (UA) NEG (NEG) Urine Ketones NEG (NEG) Urine Occult Blood NEG (NEG) Urine Nitrite NEG (NEG) Urine Bilirubin NEG (NEG) Urine Urobilinogen NEG (NEG) Urine Leukocyte Esterase TRACE (NEG) Urine WBC (Auto) 1-5 /hpf (0-5) Urine RBC (Auto) 5-10 /hpf (0-4) Urine Hyaline Casts (Auto) 1-5 /lpf (0-5) Urine Epithelial Cells (Auto) 10-20 /lpf (0-5) Urine Bacteria (Auto) NEG (NEG) Laboratory studies as stated above per my review. Medications Administered Medications (Trade) Dose Ordered Sig/Jose Route Start Time Stop Time Status Last Admin Dose Admin Sodium Chloride 1,000 ml @ 999 mls/hr Q1H1M STAT IV 12/19/17 13:20 12/19/17 14:20 DC 12/19/17 13:54 999 MLS/HR Sodium Chloride 1,000 ml @ 150 mls/hr Q6H40M ONCE IV 12/19/17 13:20 12/19/17 19:59 12/19/17 15:30 150 MLS/HR Oseltamivir Phosphate (Tamiflu Susp) 30 mg NOW STAT PO 12/19/17 15:38 12/19/17 15:39 DC 12/19/17 16:07 30 MG ECG Per My Interpretation Indication: chest pain Rate (beats per minute): 89 Rhythm: normal sinus Findings: no ectopy, other (No ST elevation.) ED Course 1317: Past medical records reviewed. The patient was evaluated in room B11B, and a complete history and physical examination were performed. 1320: Ordered Sodium Chloride 1000 ml @ 150 mls/hr IV, Sodium Chloride 1000 ml @ 999 mls/hr IV. 1447: I checked in on the patient. He is resting comfortably. 1535:: Upon reevaluation, the patient is resting comfortably. I discussed the results and treatment plan with him. He verbalized agreement of the treatment plan. The patient was discharged home. 1538: Ordered Tamiflu Susp 30 mg PO. Medical Decision Differentials include, but are not limited to; influenza, pneumonia, bronchitis , viral illness, and electrolyte or metabolic abnormality. This patient comes in as described above. He was placed in room B 11. He is here for treatment evaluation flulike symptoms. He does have a renal transplant. He was seen by his transplant team today and they recommend he go and get hydrated and apparently could do blood work in the clinic. IV access established and he was hydrated with IV normal saline. He is nontoxic non- lethargic appearing. EKG does not suggest acute coronary syndrome or arrhythmia. Chest x-ray was clear. His creatinine is in the mid 2 range and its baseline. It not bumped. He has no electrolyte or metabolic abnormalities. Influenza was positive for flu A. I will treat him accordingly we did renally dose him given his creatinine. I checked with the ED pharmacist and the recommended dosage will be 30 mg twice daily he was given this here as well as prescription. I also did touch base with Vera, his equipment coordinator, from [facility] and she agrees with the plan. Patient was encouraged to return if " he has fever, decreased urinary output, worsening of symptoms, any new problems or concerns. he desires to go home and was discharged home. He should have blood work rechecked in the next couple days according the equipment coordinator and follow-up with his doctor this week . Medication Reconcilliation Current Medication List: was personally reviewed by me Blood Pressure Screening Patient's blood pressure: Normal blood pressure Blood pressure disposition: Did not require urgent referral Consults Time Called: 1529 Consulting Physician: Home Worker Returned Call: [phone] Discussed the patient's case. The Home Worker agrees with the treatment plan. Impression Primary Impression: Influenza Additional Impressions: Dehydration Transplanted kidney Scribe Attestation The scribe's documentation has been prepared under my direction and personally reviewed by me in its entirety. I confirm that the note above accurately reflects all work, treatment, procedures, and medical decision making performed by me. Departure Information Dispostion Home / Self-Care Prescriptions Oseltamivir Phosphate (TAMIFLU) 6 Mg/Ml Maria [place] Carmen 30 MG PO BID for 5 Days, #45 ML 0 Refills Prov: Alfred Jensen M.D. 12/19/17 Referrals Carlyle Hartmann D.O. (PCP) Forms HOME CARE DOCUMENTATION FORM, IMPORTANT VISIT INFORMATION Patient Instructions My [facility] Additional Instructions Rest. Drink plenty of fluids. Have your labs rechecked in 2-3 days. Return to the ER if you have a temperature greater than 101 or decreased urinary output Use Tamiflu 30mg (5 ML) twice a day for 5 days total Return if: Worsening of symptoms, not tolerating fluids, shortness of breath, fevers, any new problems or concerns Follow-up with your regular doctor and/or the transplant team in the next 1-2 days. Ensure that you talk to the transplant team tomorrow and let her know how you are doing. Problem Qualifiers
[2017-12-19 16:01] VITALS: BP 143/75
[2017-12-19 16:07] VITALS: PULSE 86; O2SAT 94
--- NOTE | 2017-12-19 16:37 | Pharmacy Progress Note ---
ED Pharmacist Progress Note Date of Service: Dec 19, 2017. Received call from [facility] pharmacy r/e quantity of Tamiflu. Originally prescribed 45 mL (9 doses to complete 5 day course). Per pharmacy, cannot break bottle and dispense 45 mL. Full bottle comes as 60 mL. I authorized dispensing a full bottle of 60 mL but also requested that pharmacy inform the patient to discard remainder of prescription after 5 day course completed. Discussed w Dr. Jensen - who is aware.
== END 2017-12-19 16:17 | disposition home or self-care (01) ==
LOC: C.EDB 12:58
DX: J10.1 Influenza due to other identified influenza virus with other respiratory manifestations (principal); E86.0 Dehydration; Z94.0 Kidney transplant status; E10.9 Type 1 diabetes mellitus without complications; I10 Essential (primary) hypertension; I67.83 Posterior reversible encephalopathy syndrome; Z96.41 Presence of insulin pump (external) (internal); Z79.899 Other long term (current) drug therapy; Z83.3 Family history of diabetes mellitus; Z82.49 Family history of ischemic heart disease and other diseases of the circulatory system; Z79.82 Long term (current) use of aspirin; Z79.4 Long term (current) use of insulin; Z88.5 Allergy status to narcotic agent; Z88.8 Allergy status to other drugs, medicaments and biological substances

== ENCOUNTER → 2017-12-26 | Outpatient (CLI) | payer OTHER ==
[~2017-12-26] MED LIST changes: -MYCO250C26 PO; +MYCO500T4 PO; +OSEL12.5 PO
[2017-12-26 13:07] LABS: ALBUMIN 3.7 gm/dl (3.4-5.0); BLOOD UREA NITROGEN 26 mg/dl (7-18); CALCIUM 9.2 mg/dl (8.5-10.1); CARBON DIOXIDE 24 mmol/L (21-32); CREATININE 2.61 mg/dl (0.60-1.40); GLUCOSE 167 mg/dl (70-99); POTASSIUM 4.3 mmol/L (3.5-5.1); SODIUM 141 mmol/L (136-145)
[2017-12-26 13:12] LABS: PHOSPHORUS 3.1 mg/dl (2.5-4.9)
== END | disposition home or self-care (01) ==
LOC: C.LABPVFM 14:00
PROVIDERS: ATTEND Internal Medicine Nephrology
DX: N18.9 Chronic kidney disease, unspecified (principal); N25.81 Secondary hyperparathyroidism of renal origin; D64.9 Anemia, unspecified

== ENCOUNTER → 2018-01-02 | Outpatient (CLI) | payer OTHER | END | disposition home or self-care (01) | LOC: C.LABPVFM 11:21 | PROVIDERS: ATTEND Internal Medicine Nephrology | DX: N18.9 Chronic kidney disease, unspecified (principal) ==

== ENCOUNTER → 2018-01-11 | Outpatient (CLI) | payer OTHER | END | disposition home or self-care (01) | LOC: C.PATHSPEC 17:59 | PROVIDERS: ATTEND Plastic Surgery | DX: D23.12 Other benign neoplasm of skin of left eyelid, including canthus (principal); D23.39 Other benign neoplasm of skin of other parts of face; L72.0 Epidermal cyst ==

== ENCOUNTER → 2018-01-26 | Outpatient (CLI) | payer OTHER | END | disposition home or self-care (01) | LOC: C.LAB1850 15:42 | PROVIDERS: ATTEND Internal Medicine Nephrology | DX: R19.7 Diarrhea, unspecified (principal) ==

== ENCOUNTER → 2018-01-27 | Outpatient (CLI) | payer OTHER | END | disposition home or self-care (01) | LOC: C.LABSPEC 09:59 | PROVIDERS: ATTEND Nurse Practitioner Family | DX: R19.7 Diarrhea, unspecified (principal) ==